=== PATIENT | female | born 1960 | race Caucasian/White ===

== ENCOUNTER 2016-05-21 04:30 | Emergency (ER) | payer OTHER ==
[~2016-05-21] VITALS: Ht 170.2 cm; Wt 75.0 kg
[~2016-05-21 04:30] MED LIST: DESL5TAB5 PO; HYDR-3498 PO; IMIT25 PO; LORA-444 PO; TOPI100T42 PO; ZOLP10TA PO
[2016-05-21 04:32] VITALS: Ht 170.2 cm; Wt 75.0 kg
--- NOTE | 2016-05-21 04:52 | ERA ---
ER Documentation Chief Complaint Date/Time DATE: 05/21/16 TIME: 04:50 Chief Complaint RLQ abd pain radaiting to back since 1 hour ago HPI The patient is a 55-year-old female, presenting to the ER because of sudden onset of right sided abdominal pain about 3 AM. She has similar symptoms previously from kidney stone. The pain is 10/10, no aggravating or relieving factor. She does not have fever, chills, neck pain, chest pain, vomiting, diarrhea, constipation, dysuria. She does not smoke nor drink Past medical history: Migraine, anxiety, history of kidney stone Past surgical history: 4 , hysterectomy ROS All systems reviewed and are negative except as per history of present illness. Medications Home Meds Active Scripts Hydrocodone/Acetaminophen ([place] 5-325 Tablet) 1 Each Tablet, 1 TAB PO Q6H Y for PAIN, #7 TAB Prov:SANDRA REYES MD 05/21/16 Hydrocodone Bit-Acetaminophen* ([place]*) 5-325 Mg Tab, 1 TAB PO Q6 Y for PAIN, # 7 TAB Prov:SANDRA REYES MD 02/06/15 Reported Medications Zolpidem Tartrate* (Ambien*) 10 Mg Tablet, 10 MG PO HS Y for INSOMNIA, TAB 02/06/15 Topiramate* (Topamax*) 100 Mg Tablet, 100 MG PO DAILY, TAB 02/06/15 Sumatriptan Succinate* (Imitrex*) 25 Mg Tablet, 25 MG PO BID Y for MILD PAIN LEVEL 1-3, TAB May repeat after 2 hours if needed; MAX 200 mg/24 hours 11/03/13 Lorazepam* (Ativan*) 2 Mg Tablet, 2 MG PO HS 02/08/13 Desloratadine (Clarinex) 5 Mg/Tab Tab.rapdis, 5 MG PO DAILY 02/08/13 Allergies Allergies: Coded Allergies: latex (Verified Allergy, Unknown, 02/06/15) levofloxacin (Verified Allergy, Unknown, 02/06/15) PMhx/Soc History of Surgery: Yes (2 CARPAL TUNNEL;RHINOPLASTY, 3 c-sections, hysterectomy, oofrectomy) Anesthesia Reaction: No Hx Neurological Disorder: Yes (MIGRAINES) Hx Respiratory Disorders: No Hx Cardiac Disorders: No Hx Psychiatric Problems: Yes (ANXIETY) Hx Miscellaneous Medical Probl: Yes (pain contract for work related injury) Hx Alcohol Use: No Hx Substance Use: No Hx Tobacco Use: No Physical Exam Vitals Vital Signs Date Time Temp Pulse Resp B/P Pulse Ox O2 Delivery O2 Flow Rate FiO2 05/21/16 05:43 74 18 116/61 99 Room Air 05/21/16 04:32 98.3 76 20 172/81 98 Physical Exam Const: No acute distress. Head: Atraumatic. Eyes: Normal Conjunctiva. ENT: Normal External Ears, Nose and Mouth. Neck: Full range of motion. No meningismus. Resp: Clear to auscultation bilaterally. Cardio: Regular rate and rhythm, no murmurs. Abd: Soft, non distended, normal bowel sounds, mild right flank tenderness and right lower quadrant tenderness. No rigidity, rebound, CVA tenderness Skin: No petechiae or rashes. Back: No midline or flank tenderness. Ext: No cyanosis, or edema. Neur: Awake and alert. No focal deficit Psych: Normal Mood and Affect. Result Diagram: 05/21/16 0505 05/21/16 0505 Results 24 hrs Laboratory Tests Test 05/21/16 05:05 05/21/16 05:50 Alanine Aminotransferase (ALT/SGPT) 29IU/L Albumin 4.1g/dl Albumin/Globulin Ratio 1.36 Alkaline Phosphatase 106IU/L Anion Gap 18 Aspartate Amino Transf (AST/SGOT) 26IU/L Basophils # 0.010^3/ul Basophils % 0.7% Blood Morphology Comment Blood Urea Nitrogen 21mg/dl Calcium Level 9.3mg/dl Carbon Dioxide Level 23mmol/L Chloride Level 111mmol/L Creatinine 1.09mg/dl Direct Bilirubin 0.00mg/dl Eosinophils # 0.210^3/ul Eosinophils % 3.0% Globulin 3.00g/dl Glucose Level 111mg/dl Hematocrit 42.4% Hemoglobin 14.7g/dl Indirect Bilirubin 0.2mg/dl Lipase 68U/L Lymphocytes # 1.910^3/ul Lymphocytes % 37.4% Mean Corpuscular Hemoglobin 31.3pg Mean Corpuscular Hemoglobin Concent 34.8g/dl Mean Corpuscular Volume 90.1fl Mean Platelet Volume 10.6fl Monocytes # 0.410^3/ul Monocytes % 7.3% Neutrophils # 2.610^3/ul Neutrophils % 51.6% Nucleated Red Blood Cells # 0.010^3/ul Nucleated Red Blood Cells % 0.0/100WBC Platelet Count 07187^3/UL Potassium Level 4.2mmol/L Red Blood Count 4.7110^6/ul Red Cell Distribution Width 12.8% Sodium Level 148mmol/L Total Bilirubin 0.2mg/dl Total Protein 7.1g/dl White Blood Count 5.110^3/ul Bedside Urine Blood 3+ Bedside Urine Glucose (UA) Negative Bedside Urine Ketones (LAB) Negative Bedside Urine Leukocyte Esterase (L Trace Bedside Urine Nitrite (LAB) Negative Bedside Urine Protein (LAB) Negative Bedside Urine pH (LAB) 5.5 Current Medications Medications (Trade) Dose Ordered Sig/Alla Route PRN Reason Start Time Stop Time Status Last Admin Dose Admin Morphine Sulfate (morphine) 4 mg ONCE STAT IV 05/21/16 04:58 05/21/16 05:00 DC 05/21/16 05:10 Ondansetron HCl (Zofran Inj) 4 mg ONCE STAT IV 05/21/16 04:58 05/21/16 05:00 DC 05/21/16 05:10 Ketorolac Tromethamine (Toradol) 30 mg ONCE ONCE IV 05/21/16 06:07 05/21/16 06:08 DC 05/21/16 06:19 Procedures/[place] [id number] Radiology Main Line: [phone] DIAGNOSTIC IMAGING REPORT Patient: MIRA PRAKASH : 1960 Age: 55 Sex: F [id number] DOS: 05/21/16 0458 Ordering MD: SANDRA REYES MD Location: E/R Room/Bed: PROCEDURE: CT ABDOMEN/PELVIS WITHOUT CONTRAST CLINICAL INDICATION: 55-year-old female with abdominal pain. TECHNIQUE: The study was performed utilizing a [employer] VCT 64-slice CT scanner. Direct axial sections were obtained through the abdomen and pelvis without the use of intravenous contrast material. Sagittal and coronal reformations were obtained. The images were reviewed on a PACS workstation. CTD/vol = 12.9 mGy; Total Exam DLP = 730 mGy-cm. COMPARISON: CT abdomen/pelvis February 06, 2015. FINDINGS: There is mild scarring within the lingula. There is no evidence for significant pleural effusion. The liver has a normal size and contour without focal areas of abnormal density. No intrahepatic nor extrahepatic biliary ductal dilatation is seen. The gallbladder demonstrates no wall thickening nor pericholecystic fluid. No biliary stones are evident. The pancreas is without areas of abnormal attenuation. This spleen is identified and has a normal size without abnormal density. The adrenal glands are unremarkable. There is mild right-sided hydroureteronephrosis with an obstructing calculus in the distal right ureter measuring approximately 2 x 2 mm. There are multiple nonobstructing calculi scattered throughout the left kidney with the largest in the left lower pole measuring approximately 5 x 6 x 5 mm. The urinary bladder contains a small volume of urine. There is moderate retained stool identified within the proximal colon without obstruction. Multiple diverticula seen within the descending and sigmoid colon without surrounding inflammatory changes. The appendix is visualized and is without abnormal thickening or surrounding inflammatory reaction. The uterus is not visualized consistent with prior hysterectomy. There is no significant free fluid. The aortoiliac vessels are without aneurysmal dilatation. The osseous structures are intact. IMPRESSION: 1. Mild right-sided hydroureteronephrosis with obstructing distal right ureteral 2 x 2 mm calculus. 2. Multiple nonobstructing left renal calculi. 3. Retained stool within the ascending and transverse colon without obstruction. 4. Descending and sigmoid colon diverticulosis. 5. No CT evidence for appendicitis. 6. Status post hysterectomy. .Reynold Mcarthur MD, MD Date Time Electronically viewed and signed by .Reynold Mcarthur MD, MD on 05/21/2016 05:58 .M/ CC: SANDRA REYES MD MEDICAL MAKING DECISION: The patient is a 55-year-old female, presenting with acute right ureterolithiasis. She was treated with morphine 4 mg IV and Toradol 30 mg IV for pain and Zofran 4 mg IV for nausea with good response. The differential diagnoses considered include but are not limited to cholelithiasis, cholecystitis, cystitis, pancreatitis, hepatitis, gastritis, peptic ulcer disease, gastric ulcer, appendicitis, diverticulitis, cholangitis, choledocholithiasis, partial small bowel obstruction. Departure Diagnosis: Primary Impression: Ureterolithiasis Condition: Good Comments She was discharged with [place] I discussed the findings with the patient. I advised the patient to follow-up with the primary physician in about 1-2 days, sooner if needed and return if any concern. The patient's blood pressure was elevated (>120/80) but appears stable without evidence of hypertension emergency or urgency. The patient was counseled about the risks of hypertension and urged to pursue outpatient monitoring and therapy within a week with their primary care physician. SANDRA REYES MD May 21, 2016 04:51
[2016-05-21] MEDS ORDERED: ONDANSETRON 4 MG INJ IV STA (04:58)
[2016-05-21] MEDS ORDERED: morphine 4 MG/ML VIAL IV STA (04:58)
[2016-05-21 05:31] LABS: BASOPHILS % 0.7 % (0.0-2.0); EOSINOPHILS # 0.2 10^3/ul (0.0-0.5); HEMATOCRIT 42.4 % (37.0-47.0); HEMOGLOBIN 14.7 g/dl (12.0-16.0); LYMPHOCYTES # 1.9 10^3/ul (0.8-2.9); LYMPHOCYTES % 37.4 % (15.0-51.0); MEAN CORPUSCULAR HEMOGLOBIN 31.3 pg (29.0-33.0); MEAN CORPUSCULAR HGB CONC 34.8 g/dl (32.0-37.0); MEAN CORPUSCULAR VOLUME 90.1 fl (82.0-101.0); MEAN PLATELET VOLUME 10.6 fl (7.4-10.4); MONOCYTE # 0.4 10^3/ul (0.3-0.9); MONOCYTES % 7.3 % (0.0-11.0); NEUTROPHIL # 2.6 10^3/ul (1.6-7.5); NEUTROPHILS % 51.6 % (39.0-77.0); PLATELET COUNT 174 10^3/UL (140-440); RED BLOOD COUNT 4.71 10^6/ul (4.20-5.40); RED CELL DISTRIBUTION WIDTH 12.8 % (11.5-14.5); UNCORRECTED WBC 5.1 10^3/ul (4.8-10.8); WHITE BLOOD COUNT 5.1 10^3/ul (4.8-10.8)
[2016-05-21] MEDS ORDERED: HYDR-906 PO (05:38)
[2016-05-21 05:43] VITALS: BP 116/61; PULSE 74; RESP 18
[2016-05-21 05:45] LABS: CONDITION 1
[2016-05-21 05:51] LABS: URINE BLOOD (Dip) POC 3+ (NEGATIVE)
--- NOTE | 2016-05-21 05:58 | RADRPT ---
PROCEDURE: CT ABDOMEN/PELVIS WITHOUT CONTRAST CLINICAL INDICATION: 55-year-old female with abdominal pain. TECHNIQUE: The study was performed utilizing a [employer] VCT 64-slice CT scanner. Direct axia l sections were obtained through the abdomen and pelvis without the use of intravenous contrast mate rial. Sagittal and coronal reformations were obtained. The images were reviewed on a PACS workstatio n. CTD/vol = 12.9 mGy; Total Exam DLP = 730 mGy-cm. COMPARISON: CT abdomen/pelvis February 06, 2015. FINDINGS: There is mild scarring within the lingula. There is no evidence for significant pleural effusion. The liver has a normal size and contour without focal areas of abnormal density. No intrahepatic nor extrahepatic biliary ductal dilatation is seen. The gallbladder demonstrates no wall thickening nor pericholecystic fluid. No biliary stones are evident. The pancreas is without areas of abnormal att enuation. This spleen is identified and has a normal size without abnormal density. The adrenal gla nds are unremarkable. There is mild right-sided hydroureteronephrosis with an obstructing calculus i n the distal right ureter measuring approximately 2 x 2 mm. There are multiple nonobstructing calcu li scattered throughout the left kidney with the largest in the left lower pole measuring approximat fidelina 5 x 6 x 5 mm. The urinary bladder contains a small volume of urine. There is moderate retained s tool identified within the proximal colon without obstruction. Multiple diverticula seen within the descending and sigmoid colon without surrounding inflammatory changes. The appendix is visualize d and is without abnormal thickening or surrounding inflammatory reaction. The uterus is not visuali zed consistent with prior hysterectomy. There is no significant free fluid. The aortoiliac vessels are without aneurysmal dilatation. The osseous structures are intact. IMPRESSION: 1. Mild right-sided hydroureteronephrosis with obstructing distal right ureteral 2 x 2 mm calculus. 2. Multiple nonobstructing left renal calculi. 3. Retained stool within the ascending and transverse colon without obstruction. 4. Descending and sigmoid colon diverticulosis. 5. No CT evidence for appendicitis. 6. Status post hysterectomy. .Reynold Mcarthur MD, MD Date Time Electronically viewed and signed by .Reynold Mcarthur MD, MD on 05/21/2016 05:58 .Rajat
[2016-05-21 05:59] LABS: ALBUMIN 4.1 g/dl (3.3-4.9)
[2016-05-21 06:00] LABS: POTASSIUM 4.2 mmol/L (3.5-5.1)
[2016-05-21 06:02] LABS: ALBUMIN/GLOBULIN RATIO 1.36; BILIRUBIN,INDIRECT 0.2 mg/dl (0-1.1); BILIRUBIN,TOTAL 0.2 mg/dl (0.2-1.3); CREATININE 1.09 mg/dl (0.44-1.00); TOTAL PROTEIN 7.1 g/dl (6.1-8.1)
[2016-05-21 06:03] LABS: CALCIUM 9.3 mg/dl (8.4-10.2)
[2016-05-21] MEDS ORDERED: KETOROLAC 30 MG INJ IV ONE (06:07)
== END 2016-05-21 06:26 | disposition home or self-care (01) ==
LOC: E/R 04:30
DX: R10.31 Right lower quadrant pain (principal)
CPT/HCPCS: 36415; 74176; 80053; 81003; 83690; 85025; 96374; 96375; J1885; J2270; J2405; Z7502; Z7610

== ENCOUNTER 2016-05-26 20:01 | Emergency (ER) | payer OTHER ==
[~2016-05-26] VITALS: Ht 167.6 cm; Wt 74.5 kg
[~2016-05-26 20:01] MED LIST changes: +HYDR-906 PO
[2016-05-26 20:12] VITALS: Ht 167.6 cm; Wt 74.5 kg
[2016-05-26] MEDS ORDERED: NAPR-688 PO (23:20)
--- NOTE | 2016-05-26 23:54 | ERD ---
ER Documentation Chief Complaint Date/Time DATE: 05/26/16 TIME: 23:51 Chief Complaint RT KNEE PAIN X 2 DAYS; LAST NORCO TAKEN YESTERDAY. HPI This is a 55-year-old female presenting to the emergency department complaining of right knee pain since Wednesday. Patient states that she bent down and heard a pop that started the pain. She locates the pain in the anterior region of the right knee. She rates the pain 7 out of 10. Patient states that she has difficulty walking. ROS All systems reviewed and are negative except as per history of present illness. Medications Home Meds Active Scripts Naproxen* (Naproxen*) 500 Mg Tablet, 500 MG PO BID Y for PAIN, #30 TAB Prov:KHADAR MCGILL PA-C 05/26/16 Hydrocodone/Acetaminophen ([place] 5-325 Tablet) 1 Each Tablet, 1 TAB PO Q6H Y for PAIN, #7 TAB Prov:SANDRA REYES MD 05/21/16 Hydrocodone Bit-Acetaminophen* ([place]*) 5-325 Mg Tab, 1 TAB PO Q6 Y for PAIN, # 7 TAB Prov:SANDRA REYES MD 02/06/15 Reported Medications Zolpidem Tartrate* (Ambien*) 10 Mg Tablet, 10 MG PO HS Y for INSOMNIA, TAB 02/06/15 Topiramate* (Topamax*) 100 Mg Tablet, 100 MG PO DAILY, TAB 02/06/15 Sumatriptan Succinate* (Imitrex*) 25 Mg Tablet, 25 MG PO BID Y for MILD PAIN LEVEL 1-3, TAB May repeat after 2 hours if needed; MAX 200 mg/24 hours 11/03/13 Lorazepam* (Ativan*) 2 Mg Tablet, 2 MG PO HS 02/08/13 Desloratadine (Clarinex) 5 Mg/Tab Tab.rapdis, 5 MG PO DAILY 02/08/13 Allergies Allergies: Coded Allergies: latex (Verified Allergy, Unknown, 02/06/15) levofloxacin (Verified Allergy, Unknown, 02/06/15) PMhx/Soc History of Surgery: Yes (2 CARPAL TUNNEL;RHINOPLASTY, 3 c-sections, hysterectomy, oofrectomy) Anesthesia Reaction: No Hx Neurological Disorder: Yes (MIGRAINES) Hx Respiratory Disorders: No Hx Cardiac Disorders: No Hx Psychiatric Problems: Yes (ANXIETY) Hx Miscellaneous Medical Probl: Yes (pain contract for work related injury, kidney stone) Hx Alcohol Use: No Hx Substance Use: No Hx Tobacco Use: No Smoking Status: Never smoker Physical Exam Vitals Vital Signs Date Time Temp Pulse Resp B/P Pulse Ox O2 Delivery O2 Flow Rate FiO2 05/26/16 20:12 98.4 86 18 157/80 99 Physical Exam General: WD/WN, in no apparent distress, non-toxic appearing HENT: NC/AT Eyes: Conjunctiva normal Neck: Supple Pulm: Clear to auscultation, normal labored breathing; no wheezing/rales/ rhonchi heard CV: Good capillary refill GI: Non-distended, no guarding Back: No masses Ext: Tender palpation over the right anterior knee, full range of motion, patient was ambulating well around the ER however in the exam she has had difficulty walking. Neuro: Moves on all fours Skin: intact Psych: Normal mood Procedures/MDM This is a 55-year-old female presenting to the emergency department complaining of right knee pain since Wednesday. I will low suspicion for fracture dislocation. I discussed with patient that she is suitable to follow-up with her primary care physician to get a referral to see an orthopedist to consider an MRI. Patient examination room had tenderness in the right anterior knee and had difficulty walking in exam room however she was walking really well throughout the ER. An x-ray of the right knee was done and did not show any evidence of fracture dislocation. Patient will be given a prescription for naproxen. With precautions to return to the ER for any worsening symptoms.. A knee immobilizer was applied, she is neurovascular intact she understands and agrees this plan Departure Diagnosis: Primary Impression: Knee pain Laterality: right Chronicity: acute Qualified Code: M25.561 - Acute pain of right knee Condition: Stable Patient Instructions: Knee Pain, Uncertain Cause, Knee Sprain Referrals: CRISTOPHER LIRA MD (PCP) Additional Instructions: FOLLOW UP WITH YOUR PRIMARY CARE PHYSICIAN TOMORROW.Return to this facility if you are not improving as expected. Take all medicines as directed. Return to this facility if you are not improving as expected. KHADAR MCGILL PA-C May 26, 2016 23:54
--- NOTE | 2016-05-26 23:55 | RADRPT ---
PROCEDURE: knee x-ray CLINICAL INDICATION: right knee pain TECHNIQUE: AP, lateral and oblique views of the right knee were obtained. COMPARISON: None FINDINGS: There is normal mineralization. No acute fracture or dislocation is seen. Minimal lateral compartment joint spurring. There is no joint effusion. There is no significant soft tissue swelling. IMPRESSION: No fracture or dislocation. No soft tissue abnormality. RPTAT:AAJJ Silvestre Hope Physician Date Time Electronically viewed and signed by Physician Hugh on 05/26/2016 23:55 SARAH/
[2016-05-27 00:26] VITALS: BP 142/74; PULSE 68; RESP 18; TEMP 98.1
== END 2016-05-27 00:31 | disposition home or self-care (01) ==
LOC: FTE 20:01
DX: M25.561 Pain in right knee (principal); Z91.040 Latex allergy status
CPT/HCPCS: 29505; 73562; Z7502

== ENCOUNTER 2017-07-30 16:01 | Emergency (ER) | END 2017-07-30 17:45 | disposition home or self-care (01) ==

== ENCOUNTER 2017-08-22 05:59 | Inpatient (IN) | END 2017-08-23 22:15 | disposition home or self-care (01) | DRG 670 ==

== ENCOUNTER 2017-09-04 10:56 | Emergency (ER) | END 2017-09-04 13:27 | disposition home or self-care (01) ==

== ENCOUNTER 2018-02-02 07:57 | Day surgery (SDC) | END 2018-02-02 11:23 | disposition home or self-care (01) ==

== ENCOUNTER 2018-09-02 22:52 | Emergency (ER) | payer OTHER ==
[~2018-09-02] VITALS: Ht 162.6 cm; Wt 80.0 kg
[~2018-09-02 22:52] MED LIST changes: +ALBU18HF INHALATION; +ALBU2.5V3 NEB; +AZIT250T13 PO; -DESL5TAB5 PO; +FLUT16SP17 NASAL; -HYDR-3498 PO; +HYDR-3980 PO; -HYDR-906 PO; +IBUP-1542 PO; -IMIT25 PO; -LORA-444 PO; +MONT10TA24 PO; +NAPR-683 PO; +SUMA6CAR2 SQ; +TOPI100T11 PO; -TOPI100T42 PO; -ZOLP10TA PO; +ZOLP5TAB7 PO
[2018-09-02 22:57] VITALS: Ht 162.6 cm; Wt 80.0 kg
[2018-09-02] MEDS ORDERED: METHYLPREDNISOLONE 125 MG INJ IV STA (22:57)
[2018-09-02] MEDS ORDERED: IPRATROPIUM (NEB) 0.5 MG/2.5 ML AMP INH STA (22:57)
[2018-09-02] MEDS ORDERED: ALBUTEROL 0.5% (NEB) 2.5 MG/0.5 ML AMP INH STA (22:57)
[2018-09-02] MEDS ORDERED: ACETAMINOPHEN 325 MG TAB PO ONE (23:00)
--- NOTE | 2018-09-03 00:02 | ERD ---
ER Documentation Chief Complaint Chief Complaint Audible wheezing, SOB, abd retractions HPI This is a 57-year-old female with a past medical history of hyperlipidemia, asthma, migraines who is presenting with concerns of an exacerbation of her asthma. The patient reports issues over the last 2 to 3 months. She reports a chronic cough with wheezing that is occasionally exacerbated. The patient does not endorse any alleviating or exacerbating factors. The patient reports that this evening, the patient was getting ready for bed when she developed a coughing fit with shortness of breath and wheezing and she was unable to get it under control at home. She attempted to use her albuterol, but it was ineffective. The patient endorses chest tightness but no chest pain. The patient denies fever or chills. The patient has had no vision changes. The patient does not endorse neck or back pain. The patient denies lightheadedness or dizziness. The patient denies nausea or vomiting. The patient denies abdominal pain. The patient denies changes to bowel movements or urination. The patient has had no focal deficits. The patient has had no weakness or numbness or tingling to the face or extremities. ROS All systems reviewed and are negative except as per history of present illness. Medications Home Meds Active Scripts Ibuprofen* (Motrin*) 600 Mg Tab, 600 MG PO Q6H PRN for PAIN AND OR ELEVATED TEMP, #30 TAB Prov:SANDRA REYES MD 06/15/18 Reported Medications Topiramate* (Topiramate*) 100 Mg Tablet, 100 MG PO BID, TAB 06/15/18 Montelukast Sodium* (Montelukast Sodium*) 10 Mg Tablet, 10 MG PO QHS, #30 TAB 06/15/18 Albuterol Sulfate* (Albuterol Sulfate* Neb) 0.083%-3 Ml Neb, 2.5 MG NEB Q6H PRN for WHEEZING AND SOB, #30 VIAL 06/15/18 Albuterol Sulfate* (Ventolin HFA*) 18 Gm Hfa.aer.ad, 2 PUFF INHALATION Q6H, #1 INHALER 06/15/18 Hydrocodone/Acetaminophen ([place] 10-325 Tablet) 1 Each Tablet, 1 EACH PO Q6H, TAB 06/15/18 Zolpidem Tartrate* (Zolpidem Tartrate*) 5 Mg Tablet, 5 MG PO QHS PRN for INSOMNIA, #30 TAB 06/15/18 Sumatriptan Succinate* (Sumatriptan Succinate* Inj) 6 Mg/0.5 Ml Cartridge, 6 MG SQ Q12H PRN for MIGRAINE, EA MAX 6 mg/dose, repeat in 1 hour if needed. MAX 12 mg/24 hours NEEDED 06/15/18 Fluticasone Propionate* (Fluticasone Propionate* Nasal) 50 Mcg/[place] - 16 Gm [place].susp, 1 SPRAY NASAL BID, #1 BOTTLE TO EACH NOSTRIL 06/15/18 Discontinued Reported Medications Naproxen* (Naproxen*) 250 Mg Tablet, 250 MG PO BID, TAB 06/15/18 Azithromycin* (Azithromycin*) 250 Mg Tablet, 250 MG PO DAILY, #5 TAB TAKE 2TAB-1ST DAY THEN TAKE 1TAB-DAILY FOR 5 DAYS,START DATE 06/14/18. 06/15/18 Allergies Allergies: Coded Allergies: latex (Unverified Allergy, Unknown, 09/03/18) levofloxacin (Unverified Allergy, Unknown, 09/03/18) PMhx/Soc History of Surgery: Yes (real stones, c section x4, hysterectomy, CTR x2) Anesthesia Reaction: No Hx Neurological Disorder: No Hx Respiratory Disorders: Yes (asthma) Hx Cardiac Disorders: Yes (HLD) Hx Psychiatric Problems: No Hx Miscellaneous Medical Probl: Yes (MIGRAIN) Hx Alcohol Use: No Hx Substance Use: No Hx Tobacco Use: No Smoking Status: Unknown if ever smoked FmHx Family History: No diabetes Physical Exam Vitals Vital Signs Date Temp Pulse Resp B/P (MAP) Pulse Ox O2 O2 Flow FiO2 Time Delivery Rate 09/02/18 84 20 99 21 23:33 09/02/18 88 16 152/99 99 23:01 (116) 09/02/18 99.8 121 40 207/99 99 22:57 (135) Physical Exam Const: No acute distress Head: Atraumatic Eyes: Normal Conjunctiva ENT: Normal External Ears, Nose and Mouth. Neck: Full range of motion. No meningismus. Resp: Mild increased work of breathing. Bilateral inspiratory and expiratory wheezes. No rales or rhonchi. Cardio: Regular rhythm, tachycardia. No murmurs Abd: Soft, non tender, non distended. Normal bowel sounds Skin: No petechiae or rashes Back: No midline or flank tenderness Ext: No cyanosis, or edema Neur: Awake and alert Psych: Anxious Result Diagram: 09/02/180 09/02/182309 Results 24 hrs Laboratory Tests Test 09/02/18 23:10 09/02/18 23:29 White Blood Count 6.1 10^3/ul Red Blood Count 4.84 10^6/ul Hemoglobin 14.5 g/dl Hematocrit 42.9 % Mean Corpuscular Volume 88.6 fl Mean Corpuscular Hemoglobin 30.0 pg Mean Corpuscular Hemoglobin Concent 33.8 g/dl Red Cell Distribution Width 12.4 % Platelet Count 211 10^3/UL Mean Platelet Volume 11.9 fl Immature Granulocytes % 0.200 % Neutrophils % 40.0 % Lymphocytes % 44.8 % Monocytes % 9.6 % Eosinophils % 4.9 % Basophils % 0.5 % Nucleated Red Blood Cells % 0.0 /100WBC Immature Granulocytes # 0.010 10^3/ul Neutrophils # 2.4 10^3/ul Lymphocytes # 2.7 10^3/ul Monocytes # 0.6 10^3/ul Eosinophils # 0.3 10^3/ul Basophils # 0.0 10^3/ul Nucleated Red Blood Cells # 0.0 10^3/ul Prothrombin Time 11.5 Sec Prothrombin Time Ratio 0.9 INR International Normalized Ratio 0.83 Activated Partial Thromboplast Time 25.6 Sec Sodium Level 144 mmol/L Potassium Level 3.7 mmol/L Chloride Level 113 mmol/L Carbon Dioxide Level 21 mmol/L Anion Gap 10 Blood Urea Nitrogen 17 mg/dl Creatinine 0.79 mg/dl Est Glomerular Filtrat Rate mL/min > 60 mL/min Glucose Level 123 mg/dl Calcium Level 9.9 mg/dl Troponin I < 0.012 ng/ml POC Venous Lactate 1.8 mmol/L Current Medications Medications Dose Sig/Alla Start Time Status Last (Trade) Ordered Route PRN Stop Time Admin Dose Reason Admin Ipratropium 1.5 mg ONCE STAT 09/02/18 DC 09/02/18 [place] INH 22:57 23:33 (Atrovent 09/02/18 23:07 0.02% (Neb)) Albuterol 15 mg ONCE STAT 09/02/18 DC 09/02/18 (Proventil INH 22:57 23:33 0.5% (Neb)) 09/02/18 23:07 125 mg ONCE STAT 09/02/18 DC 09/02/18 Methylprednis IV 22:57 23:34 olone Sodium 09/02/18 23:07 Succinate (Solu-Medrol) 650 mg ONCE ONCE 09/02/18 DC 09/02/18 Acetaminophen PO 23:00 23:34 (Tylenol 09/02/18 23:07 Tab) Procedures/MDM MDM The patient's presentation warrants further investigation. Previous medical records, if available, were reviewed. LABS The patient's laboratory testing was obtained and reviewed. No emergent treatmen t was required unless described below. CBC: No E/o systemic infection or severe anemia or thrombocytopenia Chemistry: No E/o severe acidosis or alkalosis or renal failure or diabetic ketoacidosis PT/INR: No E/o significant coagulopathy Troponin: No E/o acute ischemia Lactic Acid: No E/o severe sepsis EKG EKG read by me: Rate/Rhythm: Regular rate and rhythm at a rate of 90 bpm Intervals: Normal [place]: Normal Impression: No evidence of acute ischemia or arrhythmia IMAGING Imaging and Radiology interpretation reviewed. CXR FINDINGS: Mild low lung volumes. Mild bibasilar atelectasis. Hemidiaphragms remain sharply defined. No evidence of focal consolidation, pneumothorax, or pleural effusion. Cardiomediastinal silhouette is within normal limits. Visualized osseous thorax is unremarkable. Overlying soft tissues are equally unremarkable. IMPRESSION: No evidence of acute cardiopulmonary process, allowing for mild low lung volumes. Electronically viewed and signed by Physician Dane on 09/02/2018 23:58 TREATMENT/DISPOSITION The patient presents for an asthma exacerbation. I do not see evidence of an infectious etiology. The patient was treated with nebulized albuterol and ipratropium in addition to Solu-Medrol with improvement of her symptoms. After treatment, the patient's heart rate and respiratory rate resolved. The patient's chest xray does not reveal pneumonia or pneumothorax or pleural effusions or pulmonary edema. The patient does not have a widened mediastinum and does not have signs or symptoms concerning for thoracic aortic aneurysm or dissection. The patient does not have pneumomediastinum or signs concerning for esophageal tear or rupture. The patient has no clinical or radiographic signs of pericardial effusion or tamponade. The patient does not have pneumoperitoneum and I have decreased suspicion of viscus perforation as possible referred pain. The patient does not have a history of heart failure and I have low suspicion for this. The patient is not hypoxic. The patient have pleuritic pain. The patient is not on hormonal therapy. The patient has no history of clotting or bleeding disorders. The patient has no calf tenderness. The patient has had no hemoptysis. She has a more likely diagnosis and an asthma exacerbation. I have decreased suspicion for PE. The patient's troponin and EKG are reassuring. I have low suspicion for acute coronary syndrome. DISCHARGE Upon reevaluation of the patient, symptoms have improved. No emergent diagnoses were identified. At this time, I feel that the patient stable for discharge. The patient was instructed to follow-up with a primary care physician in 1-3 days. The patient will be given strict precautions with which to return to the emergency department. Prescriptions: Prednisone, Tessalon Perles The patient's blood pressure was elevated at greater than 120/80 while in the emergency department. The patient was otherwise stable with no evidence of hypertensive urgency or emergency. The patient does not require admission for blood pressure control. I have discussed with the patient the risks of hypertension. I have instructed the patient to return to the ER for any new or worsening symptoms including chest pain, shortness of breath, headache, blurred vision, confusion, nausea, vomiting or LOC. I have advised the patient to follow up with the primary care physician for outpatient monitoring and treatment for hypertension in 1-3 days. Disclaimer: Inadvertent spelling and grammatical errors are likely due to EHR/dictation software use and do not reflect on the overall quality of patient care. Note that the electronic time recorded on this note does not necessarily reflect the actual time of the patient encounter. Departure Diagnosis: Primary Impression: Asthma exacerbation Asthma severity: moderate Asthma persistence: unspecified Qualified [place]: J45.901 - Unspecified asthma with (acute) exacerbation Additional Impressions: Shortness of breath Chronic cough Condition: Stable Patient Instructions: Asthma, Cough, Chronic, Uncertain Cause, (Adult) Additional Instructions: Thank you for for coming to [facility] for your care today. Please ask your nurse or provider if you have questions about your care today and do not leave until all your questions have been answered. Please use any medications given as directed and follow-up with your doctor (or the doctor you were referred to) in the next 1-3 days. If you do not have a primary care doctor you may follow up at the [facility] or [facility] (listed below). You may also use motrin and tylenol as needed for fever and/or pain unless instructed otherwise by your provider or nurse. Indications for more urgent follow-up have been discussed, but you may return to the Emergency Department at ANY time for any worrisome or worsening symptoms. If you have abdominal pain, please know that no test or exam you received is perfect and you should follow up within 8 hours for continued pain. If you had any imaging studies today, such as an X-Ray or CT Scan, these studies will be reviewed later by a radiologist. You will be called if there are important findings that were not identified today, so make sure the contact information you provided at registration is correct. If you received any narcotic pain control medicine today, such as Vicodin, Mor phine or Dilaudid, your coordination and judgment may be affected for a number of hours. Please do not drive or operate heavy machinery, and you may want someone to assist you at home. If you were given a prescription for narcotic medication, be aware that it is very addictive- use sparingly and only if necessary. PLEASE SEEK FURTHER EVALUATION AND MANAGEMENT AT YOUR DOCTORS OFFICE WITHIN THE NEXT 1-3 DAYS. IT IS YOUR RESPONSIBILITY TO MAKE AN APPOINTMENT FOR FOLOW-UP CARE. IF YOU HAVE A PRIMARY DOCTOR, PLEASE CALL THEIR OFFICE TO SCHEDULE AN APPOINTMENT FOR FOLLOW UP. IF YOU DO NOT HAVE A PRIMARY DOCTOR YOU CAN CALL OUR PHYSICIAN REFERRAL HOTLINE AT IF YOU CAN NOT AFFORD TO SEE A PHYSICIAN YOU CAN CHOSE FROM THE FOLLOWING [facility] CLINICS: [facility] [address] [facility] [address] [facility] [address] [facility] [address] [facility] [address] [facility] [facility]. [address] MARIANO RIOSSHIRA MD Sep 03, 2018 00:02
[2018-09-03] MEDS ORDERED: BENZ-6 PO (02:30)
[2018-09-03] MEDS ORDERED: PRED20TA PO (02:30)
[2018-09-03 02:51] VITALS: BP 135/70; PULSE 85; RESP 21
== END 2018-09-03 02:58 | disposition home or self-care (01) ==
LOC: E/R 22:52
DX: J45.901 Unspecified asthma with (acute) exacerbation (principal); Z91.040 Latex allergy status
CPT/HCPCS: 36415; 71045; 80048; 83605; 84484; 85025; 85610; 85730; 93005; 94644; 96374; 99285; J2930

== ENCOUNTER 2018-10-23 21:21 | Inpatient (IN) | payer OTHER ==
[~2018-10-23] VITALS: Ht 167.6 cm; Wt 79.5 kg
[~2018-10-23 21:21] MED LIST changes: -AZIT250T13 PO; +BENZ-6 PO; -NAPR-683 PO; +PRED20TA PO
[2018-10-23] MEDS ORDERED: morphine 4 MG/ML VIAL IV STA (22:16)
[2018-10-23] MEDS ORDERED: SOD CHLORIDE 0.9% 1,000 ML IV STA (22:16)
[2018-10-23] MEDS ORDERED: ONDANSETRON 4 MG INJ IV STA (22:16)
[2018-10-24] MEDS ORDERED: CEFTRIAXONE 1 GM/50 ML (PMX) 50 ML IVPB ONE (01:30)
[2018-10-24] MEDS ORDERED: ACETAMINOPHEN 325 MG TAB PO PRN ×2 (02:00→02:30)
[2018-10-24] MEDS ORDERED: ONDANSETRON 4 MG INJ IV PRN (02:00)
--- NOTE | 2018-10-24 02:22 | ERD ---
ER Documentation Chief Complaint Chief Complaint RIGHT PELVIC PAIN WITH RIGHT FLANK PAIN X 3 DAYS, HX OF KIDNEY STONES HPI 58-year-old female coming in the right lower extremity pain status post mechanical fall. She is complains of pain in her hip and her knee. Has a history of surgically repaired knee. Denies fevers chills nausea vomiting. Denies head trauma. Denies any other current issues ROS All systems reviewed and are negative except as per history of present illness. Medications Home Meds Active Scripts Benzonatate* (Tessalon Perle*) 100 Mg Capsule, 100 MG PO Q8H PRN for COUGH, #10 CAP Prov:SHIRA OLIVARES MD 09/03/18 Prednisone* (Prednisone*) 20 Mg Tab, 40 MG PO DAILY for 4 Days, TAB Prov:SHIRA OLIVARES MD 09/03/18 Ibuprofen* (Motrin*) 600 Mg Tab, 600 MG PO Q6H PRN for PAIN AND OR ELEVATED TEMP, #30 TAB Prov:SANDRA REYES MD 06/15/18 Reported Medications Topiramate* (Topiramate*) 100 Mg Tablet, 100 MG PO BID, TAB 06/15/18 Montelukast Sodium* (Montelukast Sodium*) 10 Mg Tablet, 10 MG PO QHS, #30 TAB 06/15/18 Albuterol Sulfate* (Albuterol Sulfate* Neb) 0.083%-3 Ml Neb, 2.5 MG NEB Q6H PRN for WHEEZING AND SOB, #30 VIAL 06/15/18 Albuterol Sulfate* (Ventolin HFA*) 18 Gm Hfa.aer.ad, 2 PUFF INHALATION Q6H, #1 INHALER 06/15/18 Hydrocodone/Acetaminophen ([place] 10-325 Tablet) 1 Each Tablet, 1 EACH PO Q6H, TAB 06/15/18 Zolpidem Tartrate* (Zolpidem Tartrate*) 5 Mg Tablet, 5 MG PO QHS PRN for INSOMNIA, #30 TAB 06/15/18 Sumatriptan Succinate* (Sumatriptan Succinate* Inj) 6 Mg/0.5 Ml Cartridge, 6 MG SQ Q12H PRN for MIGRAINE, EA MAX 6 mg/dose, repeat in 1 hour if needed. MAX 12 mg/24 hours NEEDED 06/15/18 Fluticasone Propionate* (Fluticasone Propionate* Nasal) 50 Mcg/[place] - 16 Gm [place].susp, 1 SPRAY NASAL BID, #1 BOTTLE TO EACH NOSTRIL 06/15/18 Allergies Allergies: Coded Allergies: latex (Unverified Allergy, Unknown, 09/03/18) levofloxacin (Unverified Allergy, Unknown, 09/03/18) PMhx/Soc History of Surgery: Yes (real stones, c section x4, hysterectomy, CTR x2) Anesthesia Reaction: No Hx Neurological Disorder: No Hx Respiratory Disorders: Yes (asthma) Hx Cardiac Disorders: Yes (HLD) Hx Psychiatric Problems: No Hx Miscellaneous Medical Probl: Yes (MIGRAIN) Hx Alcohol Use: No Hx Substance Use: No Hx Tobacco Use: No Smoking Status: Never smoker Physical Exam Vitals Vital Signs Date Temp Pulse Resp B/P (MAP) Pulse Ox O2 O2 Flow FiO2 Time Delivery Rate 10/23/18 98.4 81 20 165/82 99 Room Air 22:05 (109) 10/23/18 98.4 95 20 190/90 99 21:25 (123) Physical Exam Const: No acute distress Head: Atraumatic Eyes: Normal Conjunctiva ENT: Normal External Ears, Nose and Mouth. Neck: Full range of motion. No meningismus. Resp: Clear to auscultation bilaterally Cardio: Regular rate and rhythm, no murmurs Abd: Soft, non tender, non distended. Normal bowel sounds Skin: No petechiae or rashes Back: No midline or flank tenderness Ext: No cyanosis, or edema Neur: Awake and alert Psych: Normal Mood and Affect Result Diagram: 10/23/18222610/23/187 Results 24 hrs Laboratory Tests Test 10/23/18 22:27 10/23/18 22:37 White Blood Count 5.4 10^3/ul Red Blood Count 4.86 10^6/ul Hemoglobin 14.6 g/dl Hematocrit 43.6 % Mean Corpuscular Volume 89.7 fl Mean Corpuscular Hemoglobin 30.0 pg Mean Corpuscular Hemoglobin Concent 33.5 g/dl Red Cell Distribution Width 12.3 % Platelet Count 180 10^3/UL Mean Platelet Volume 11.7 fl Immature Granulocytes % 0.200 % Neutrophils % 51.0 % Lymphocytes % 35.6 % Monocytes % 9.3 % Eosinophils % 3.0 % Basophils % 0.9 % Nucleated Red Blood Cells % 0.0 /100WBC Immature Granulocytes # 0.010 10^3/ul Neutrophils # 2.8 10^3/ul Lymphocytes # 1.9 10^3/ul Monocytes # 0.5 10^3/ul Eosinophils # 0.2 10^3/ul Basophils # 0.1 10^3/ul Nucleated Red Blood Cells # 0.0 10^3/ul Sodium Level 144 mmol/L Potassium Level 3.9 mmol/L Chloride Level 111 mmol/L Carbon Dioxide Level 26 mmol/L Anion Gap 7 Blood Urea Nitrogen 21 mg/dl Creatinine 0.91 mg/dl Est Glomerular Filtrat Rate mL/min > 60 mL/min Glucose Level 111 mg/dl Calcium Level 9.5 mg/dl Total Bilirubin 0.3 mg/dl Direct Bilirubin 0.00 mg/dl Indirect Bilirubin 0.3 mg/dl Aspartate Amino Transf (AST/SGOT) 23 IU/L Alanine Aminotransferase (ALT/SGPT) 28 IU/L Alkaline Phosphatase 115 IU/L Total Protein 7.2 g/dl Albumin 4.1 g/dl Globulin 3.10 g/dl Albumin/Globulin Ratio 1.32 Lipase 60 U/L Urine Color YELLOW Urine Clarity SLIGHTLY CLOUDY Urine pH 7.0 Urine Specific [place] 1.017 Urine Ketones NEGATIVE mg/dL Urine Nitrite NEGATIVE mg/dL Urine Bilirubin NEGATIVE mg/dL Urine Urobilinogen 1+ mg/dL Urine Leukocyte Esterase 1+ Latricia/ul Urine Microscopic RBC > 182 /HPF Urine Microscopic WBC 17 /HPF Urine Calcium Oxalate Crystals FEW /HPF Urine Hemoglobin 3+ mg/dL Urine Glucose NEGATIVE mg/dL Urine Total Protein NEGATIVE mg/dl Current Medications Medications Dose Sig/Alla Start Time Status Last (Trade) Ordered Route PRN Stop Time Admin Dose Reason Admin Sodium 1,000 ml @ Q1H STAT 10/23/18 DC 10/23/18 Chloride 1,000 mls/hr IV 22:16 22:36 10/23/18 23:15 Morphine 4 mg ONCE STAT 10/23/18 DC 10/23/18 Sulfate IV 22:16 22:36 (morphine) 10/23/18 22:17 Ondansetron 4 mg ONCE STAT 10/23/18 DC 10/23/18 HCl (Zofran IV 22:16 22:36 Inj) 10/23/18 22:17 Ceftriaxone 50 ml @ ONCE ONCE 10/24/18 DC 10/24/18 Sodium 100 mls/hr IVPB 01:30 01:47 10/24/18 01:59 Ondansetron 4 mg BRIDGE ORDER 10/24/18 HCl (Zofran PRN IV 02:00 Inj) NAUSEA/VOMITI 10/25/18 01:59 NG 650 mg ER BRIDGE 10/24/18 Acetaminophen PRN PO 02:00 (Tylenol .MILD PAIN 10/25/18 01:59 Tab) 1-3 OR TEMP Procedures/MDM X-ray Hip 2V Interpreted by me: Bones: [No fracture] Joints: [No dislocation] Foreign body: [None] X-ray Knee 3V Interpreted by me: Bones: Shattered comminuted distal femur above prosthesis Joints: [No dislocation] Foreign body: [None] Medical decision make: Patient will be admitted for orthopedic management given fracture. Pain controlled here in the ER Departure Diagnosis: Primary Impression: Knee fracture Condition: Stable ARAVIND SAUNDERS Oct 24, 2018 02:21
--- NOTE | 2018-10-24 02:27 | HP ---
Date/Time of Note Date/Time of Note DATE: 10/24/18 TIME: 02:20 Assessment/Plan VTE Prophylaxis SCD applied (from Nsg): Yes Pharmacological prophylaxis: NA/contraindicated Pharm contraindication: low risk/ambulating Lines/Catheters IV Catheter Type (from Nrsg): Saline Lock Assessment/Plan Hospital Course This is a 58-year female being admitted to the [facility] floor for: #1 right pyelonephritis with hydrate ureteronephrosis: Secondary to obstructing calculus. Ceftriaxone 1 g every 24 hours. Await urine culture results. IV fluid hydration. #2 nephrolithiasis: Patient has obstructing calculus in the right distal ureter at the ureterovesical junction with associated mild right hydronephrosis and hy droureter. Will provide the patient with antibiotics as per #1. Aggressive IV fluid hydration with normal saline. Flomax daily. Pain control. Straining of the urine. Patient also has bilateral noncritical renal calculi. Will consult . #3 DVT GI prophylaxis: SCDs, no GI prophylaxis indicated Further treatment strategy will be implemented as per the clinical course. Result Diagram: 10/23/18222610/23/182226 Results 24hrs Laboratory Tests Test 10/23/18 22:27 10/23/18 22:37 White Blood Count 5.4 Red Blood Count 4.86 Hemoglobin 14.6 Hematocrit 43.6 Mean Corpuscular Volume 89.7 Mean Corpuscular Hemoglobin 30.0 Mean Corpuscular Hemoglobin Concent 33.5 Red Cell Distribution Width 12.3 Platelet Count 180 Mean Platelet Volume 11.7 H Immature Granulocytes % 0.200 Neutrophils % 51.0 Lymphocytes % 35.6 Monocytes % 9.3 Eosinophils % 3.0 Basophils % 0.9 Nucleated Red Blood Cells % 0.0 Immature Granulocytes # 0.010 Neutrophils # 2.8 Lymphocytes # 1.9 Monocytes # 0.5 Eosinophils # 0.2 Basophils # 0.1 Nucleated Red Blood Cells # 0.0 Sodium Level 144 Potassium Level 3.9 Chloride Level 111 H Carbon Dioxide Level 26 Anion Gap 7 Blood Urea Nitrogen 21 H Creatinine 0.91 Est Glomerular Filtrat Rate mL/min > 60 Glucose Level 111 Calcium Level 9.5 Total Bilirubin 0.3 Direct Bilirubin 0.00 Indirect Bilirubin 0.3 Aspartate Amino Transf (AST/SGOT) 23 Alanine Aminotransferase (ALT/SGPT) 28 Alkaline Phosphatase 115 Total Protein 7.2 Albumin 4.1 Globulin 3.10 Albumin/Globulin Ratio 1.32 Lipase 60 Urine Color YELLOW Urine Clarity SLIGHTLY CLOUDY A Urine pH 7.0 Urine Specific [place] 1.017 Urine Ketones NEGATIVE Urine Nitrite NEGATIVE Urine Bilirubin NEGATIVE Urine Urobilinogen 1+ H Urine Leukocyte Esterase 1+ H Urine Microscopic RBC > 182 H Urine Microscopic WBC 17 H Urine Calcium Oxalate Crystals FEW A Urine Hemoglobin 3+ H Urine Glucose NEGATIVE Urine Total Protein NEGATIVE HPI/ROS Admit Date/Time Admit Date/Time Hx of Present Illness Chief complaint: Suprapubic pain x2 days, right flank pain This is a 58-year-old male with a past medical history of kidney stones who presented to the emergency department complaining of 2 days of suprapubic pain. Patient has a history of kidney stones and has been following up with her urologist as an outpatient she has had procedures done in the past to remove the kidney stones along with stents. Her recent stones were thought to be small and would pass on their own. Patient reports that on Wednesday she started experiencing suprapubic pain along with some pain in her back. She reports the pain is constant. She also reported that she has had urinary frequency as well as dysuria. She denies any chest pain or nausea vomiting or fevers. Allergies: Latex, Levaquin Medications: None ROS Const: As per HPI Eyes : No pain discharge or redness or change in visual acuity ENT: No pain, sore throat, congestion, congestion, dysphagia or discharge Respiratory: No shortness of breath, cough, sputum, wheezing, or pleuritic pain Cardiovascular: No chest pain, palpitation, PND, or edema GI : no change in appetite, abdominal pain, nausea, vomiting, diarrhea, constipation, or change in the color his stool Genitourinary: As per HPI Musculoskeletal: No joint pain, back pain, neck pain, restricted range of motion in neck or joints Skin: No rash, bruising or hives Neuro: No headache, dizziness, syncope, seizure, focal weakness Endocrine: No polyuria, polydipsia, temperature intolerance Psych: No hallucination, depression, anxiety or suicidal ideation PMH/Family/Social Past Medical History Recurrent nephrolithiasis Medications Current Medications Ondansetron HCl (Zofran Inj) 4 mg BRIDGE ORDER PRN IV NAUSEA/VOMITING; Start 10/24/18 at 02:00; Stop 10/25/18 at 01:59 Acetaminophen (Tylenol Tab) 650 mg ER BRIDGE PRN PO .MILD PAIN 1-3 OR TEMP; Start 10/24/18 at 02:00; Stop 10/25/18 at 01:59 Coded Allergies: latex (Unverified Allergy, Unknown, 09/03/18) levofloxacin (Unverified Allergy, Unknown, 09/03/18) Past Surgical History Previous kidney stone surgery, x4, hysterectomy, oophorectomy Past Surgical Hx: other Family History Significant Family History: no pertinent family hx Social History Alcohol Use: none Smoking Status: Never smoker Drug Use: none Exam/Review of Systems Vital Signs Vitals Vital Signs Date Temp Pulse Resp B/P (MAP) Pulse Ox O2 O2 Flow FiO2 Time Delivery Rate 10/23/18 98.4 81 20 165/82 99 Room Air 22:05 (109) Exam Exam General: Patient is a pleasant female currently lying in bed in mild distress from pain HEENT: Atraumatic, normocephalic. The pupils are equal, round and reactive. Extraocular motor are intact Neck: Supple with full range of motion. No rigidity or meningismus Chest: Nontender Lungs: Clear to auscultation bilaterally no crackles rales or wheezing Heart: Normal S1-S2, Regular rhythm and rate. No murmur, S3, or S4 Abdomen: Soft , nontender, nondistended , bowel sounds are present. No guarding no rebound tenderness , No masses or organomegaly. Genitourinary: Suprapubic tenderness palpation, right flank tenderness to palpation Extremities: Normal to inspection, no edema no cyanosis Neurologic: Normal mental status, speech normal, cranial nerves II through XII are intact, motor and sensory are intact, no focal weakness Additional Comments PROCEDURE: CT Abdomen and Pelvis without contrast. CLINICAL INDICATION: Pain. TECHNIQUE: CT scan of the abdomen and pelvis was performed on a multidetector slice CT scanner. No intravenous contrast material was utilized. Sagittal and coronal reformatted images were obtained from the axial source images. Images were reviewed on a high-resolution PACS workstation. Exam CTDlvol = 16 mGy and DLP = 941 Gy-cm. One of the following 3 dose reduction techniques were used: Automated exposure control; adjustment of the mA and/or kV according to patient size; or use of iterative reconstruction technique. DICOM images are available. COMPARISON: 06/15/2018. FINDINGS: There is no bowel obstruction or ileus. The appendix is visualized. There is no evidence for appendicitis. There is diffuse left and sigmoid colon diverticulosis without evidence for diverticulitis. There is no free fluid. The liver is overall normal in size. No intrahepatic lesions are identified. The gallbladder is normal in appearance. There is no definite biliary ductal dilation. Pancreas is normal in appearance. The spleen is unremarkable. There are no adrenal masses. The aorta is normal caliber. Atherosclerotic vascular calcifications are present. There is mild right hydronephrosis and diffuse hydroureter to the level of a 3 x 3.1 mm calculus in the distal right ureter at the ureterovesicular junction. Immediately proximal the right ureter there is a 1 mm calculus. There are multiple bilateral nonobstructing renal calcifications. Kidneys are otherwise normal in appearance. Left ureter is normal appearance.. The urinary bladder is normal in appearance. Uterus is unremarkable. The ovaries are not well characterized. Limited evaluation of the lung bases demonstrates bibasilar atelectasis. There are degenerative changes of the lumbar spine. IMPRESSION: 1. Obstructing calculus in the distal right ureter at the ureterovesicular junction with associated mild right hydronephrosis and hydroureter. Additional small calculus within the distal right ureter medially adjacent to the obs tructing calculus. 2. Bilateral nonobstructing renal calculi. 3. Diffuse left and sigmoid colon diverticulosis without diverticulitis. 4. Otherwise no change. RPTAT: HMVK .Lamine Bates MD, MD Date Time Electronically viewed and signed by .Lamine Bates MD, MD on 10/24/2018 00:00 .K/ CC: ARAVIND SAUNDERS [id number] SOLO LA Oct 24, 2018 02:27
[2018-10-24] MEDS ORDERED: TAMSULOSIN (SR) 0.4 MG CAP PO ONE (02:30)
[2018-10-24] MEDS ORDERED: BISACODYL (EC) 5 MG TAB PO PRN (02:30)
[2018-10-24] MEDS ORDERED: NACL 0.9% 3 ML SYG IV SCH (02:30)
[2018-10-24] MEDS ORDERED: DOCUSATE SODIUM 100 MG CAP PO PRN (02:30)
[2018-10-24 02:50] VITALS: BP 139/77; PULSE 75; RESP 19
[2018-10-24] MEDS: SOD CHLORIDE 0.9% 1,000 ML IV SCH ×3 (03:22→22:28)
[2018-10-24] MEDS: ONDANSETRON 4 MG INJ IV PRN ×2 (03:24→08:56)
[2018-10-24] MEDS: KETOROLAC 15 MG INJ IV SCH ×4 (03:24→21:54)
[2018-10-24 03:38] VITALS: Ht 167.6 cm; Wt 79.5 kg
[2018-10-24 08:27] VITALS: BP 101/52; PULSE 61; RESP 19
[2018-10-24] MEDS: HYDROmorphONE 0.5 MG/0.5 ML SYG IV PRN ×2 (11:45→16:35)
[2018-10-24] MEDS: SUMATRIPTAN 6 MG/0.5 ML INJ SC PRN (13:17)
--- NOTE | 2018-10-24 13:19 | CONS ---
Assessment/Plan Assessment/Plan Hospital Course (Demo Recall) 58-year-old female with known history of kidney stones presented to the emergency room with right flank pain. She underwent a CT scan of the abdomen and pelvis and that showed a 3 mm stone at the right ureterovesical junction causing obstruction and hydronephrosis. The patient has had stones in the past and has undergone left extracorporeal shockwave lithotripsy to a left ureterop elvic junction stone. Patient does have right lower quadrant pain and right flank pain. The CT scan showed: 1. Obstructing calculus in the distal right ureter at the ureterovesicular junc tion with associated mild right hydronephrosis and hydroureter. Additional small calculus within the distal right ureter medially adjacent to the obstructing calculus. 2. Bilateral nonobstructing renal calculi. 3. Diffuse left and sigmoid colon diverticulosis without diverticulitis. 4. Otherwise no change The stone size is 3 x 3.1 mm at the ureterovesical junction. The patient should be able to pass the stone. Plan is to give her pain medications, get a KUB, she is already on tamsulosin, strain the urine and encourage p.o. fluids. Consultation Date/Type/Reason Admit Date/Time Date of Consultation: Oct 24, 2018 Type of Consult Urology Reason for Consultation Distal right ureteral stone Requesting Provider: SOLO LA Date/Time of Note DATE: 10/24/18 TIME: 13:09 Hx of Present Illness 58-year-old female with known history of kidney stones presented to the emergency room with right flank pain. She underwent a CT scan of the abdomen and pelvis and that showed a 3 mm stone at the right ureterovesical junction causing obstruction and hydronephrosis. The patient has had stones in the past and has undergone left extracorporeal shockwave lithotripsy to a left ureteropelvic junction stone. Patient does have right lower quadrant pain and right flank pain. The CT scan showed: 1. Obstructing calculus in the distal right ureter at the ureterovesicular junction with associated mild right hydronephrosis and hydroureter. Additional small calculus within the distal right ureter medially adjacent to the obstructing calculus. 2. Bilateral nonobstructing renal calculi. 3. Diffuse left and sigmoid colon diverticulosis without diverticulitis. 4. Otherwise no change Constitutional: other (Migraine headaches) Eyes: no complaints ENT: no complaints Respiratory: no complaints; No shortness of breath Cardiovascular: no complaints Gastrointestinal: pain (Right lower quadrant), nausea; No vomiting Genitourinary: flank pain (Right side) Musculoskeletal: no complaints Skin: no complaints Neurologic: headache Lymphatic: no complaints Psychological: no complaints Immunologic: no complaints Past Medical History Medical History: other (History of kidney stones) Home Meds Active Scripts Benzonatate* (Tessalon Perle*) 100 Mg Capsule, 100 MG PO Q8H PRN for COUGH, #10 CAP Prov:SHIRA OLIVARES MD 09/03/18 Prednisone* (Prednisone*) 20 Mg Tab, 40 MG PO DAILY for 4 Days, TAB Prov:SHIRA OLIVARES MD 09/03/18 Ibuprofen* (Motrin*) 600 Mg Tab, 600 MG PO Q6H PRN for PAIN AND OR ELEVATED TEMP, #30 TAB Prov:SANDRA REYES MD 06/15/18 Reported Medications Topiramate* (Topiramate*) 100 Mg Tablet, 100 MG PO BID, TAB 06/15/18 Montelukast Sodium* (Montelukast Sodium*) 10 Mg Tablet, 10 MG PO QHS, #30 TAB 06/15/18 Albuterol Sulfate* (Albuterol Sulfate* Neb) 0.083%-3 Ml Neb, 2.5 MG NEB Q6H PRN for WHEEZING AND SOB, #30 VIAL 06/15/18 Albuterol Sulfate* (Ventolin HFA*) 18 Gm Hfa.aer.ad, 2 PUFF INHALATION Q6H, #1 INHALER 06/15/18 Hydrocodone/Acetaminophen (Irene 10-325 Tablet) 1 Each Tablet, 1 EACH PO Q6H, TAB 06/15/18 Zolpidem Tartrate* (Zolpidem Tartrate*) 5 Mg Tablet, 5 MG PO QHS PRN for INSOMNIA, #30 TAB 06/15/18 Sumatriptan Succinate* (Sumatriptan Succinate* Inj) 6 Mg/0.5 Ml Cartridge, 6 MG SQ Q12H PRN for MIGRAINE, EA MAX 6 mg/dose, repeat in 1 hour if needed. MAX 12 mg/24 hours NEEDED 06/15/18 Fluticasone Propionate* (Fluticasone Propionate* Nasal) 50 Mcg/Cammal - 16 Gm Cammal.susp, 1 SPRAY NASAL BID, #1 BOTTLE TO EACH NOSTRIL 06/15/18 Medications Current Medications Sodium Chloride 1,000 ml @ 100 mls/hr Q10H IV Last administered on 10/24/18at 03:22; Admin Dose 100 MLS/HR; Start 10/24/18 at 02:28 IV Flush (NS 3 ml) 3 ml PER PROTOCOL IV ; Start 10/24/18 at 02:30 Ondansetron HCl (Zofran Inj) 4 mg Q6H PRN IV NAUSEA/VOMITING Last administered on 10/24/18at 08:56; Admin Dose 4 MG; Start 10/24/18 at 02:30 Acetaminophen (Tylenol Tab) 650 mg Q6H PRN PO .PAIN 1-3 OR TEMP; Start 10/24/18 at 02:30 Hydromorphone HCl (Dilaudid) 0.5 mg Q4H PRN IV .SEVERE PAIN 7-10 Last admini stered on 10/24/18at 11:45; Admin Dose 0.5 MG; Start 10/24/18 at 02:30 Docusate Sodium (Colace) 100 mg Q12H PRN PO .CONSTIPATION; Start 10/24/18 at 02:30 Bisacodyl (Dulcolax) 5 mg DAILY PRN PO .CONSTIPATION; Start 10/24/18 at 02:30 Ketorolac Tromethamine (Toradol) 15 mg Q6H IV Last administered on 10/24/18at 09:13; Admin Dose 15 MG; Start 10/24/18 at 02:30; Stop 10/25/18 at 02:29 Tamsulosin HCl (Flomax) 0.4 mg HS PO ; Start 10/24/18 at 21:00 Sumatriptan Succinate (Imitrex) 6 mg DAILY PRN SC HEADACHE; Start 10/24/18 at 12:30 Allergies: Coded Allergies: latex (Unverified Allergy, Unknown, 09/03/18) levofloxacin (Unverified Allergy, Unknown, 09/03/18) Past Surgical History Past Surgical Hx: other (Left extracorporeal shockwave lithotripsy, 4 C- sections, hysterectomy and bilateral oophorectomy, nose surgery, bilateral car pal tunnel surgery) Social History Alcohol Use: none Smoking Status: Never smoker Drug Use: none Exam/Review of Systems Exam Vitals Vital Signs Date Temp Pulse Resp B/P (MAP) Pulse Ox O2 O2 Flow FiO2 Time Delivery Rate 10/24/18 97.4 61 19 101/52 98 Room Air 08:27 (68) Intake and Output 10/23/18 10/23/18 10/24/18 1515:00 23:00 07:00 IntakeIntake Total 250 ml BalanceBalance 250 ml Constitutional: alert, oriented Psych: no complaints Head: normocephalic Eyes: nl conjunctiva ENMT: nl external ears & nose Neck: supple Respiratory: clear to auscultation; No wheezing Cardiovascular: regular rate and rhythm; No jugular venous distention (JVD) Gastrointestinal: soft, tender (Right lower quadrant) Genitourinary - Female: CVA tenderness (Right flank) Neurological: nl mental status Skin: nl turgor Results Result Diagram: 10/24/18 0439 10/24/18 0439 Results 24hrs Laboratory Tests Test 10/23/18 22:27 10/23/18 22:37 10/24/18 04:39 White Blood Count 5.4 4.4 L Red Blood Count 4.86 4.59 Hemoglobin 14.6 13.8 Hematocrit 43.6 41.6 Mean Corpuscular Volume 89.7 90.6 Mean Corpuscular Hemoglobin 30.0 30.1 Mean Corpuscular 33.5 33.2 Hemoglobin Concent Red Cell Distribution Width 12.3 12.4 Platelet Count 180 177 Mean Platelet Volume 11.7 H 12.2 H Immature Granulocytes % 0.200 0.200 Neutrophils % 51.0 40.3 Lymphocytes % 35.6 42.7 Monocytes % 9.3 10.5 Eosinophils % 3.0 5.2 Basophils % 0.9 1.1 Nucleated Red Blood Cells % 0.0 0.0 Immature Granulocytes # 0.010 0.010 Neutrophils # 2.8 1.8 Lymphocytes # 1.9 1.9 Monocytes # 0.5 0.5 Eosinophils # 0.2 0.2 Basophils # 0.1 0.1 Nucleated Red Blood Cells # 0.0 0.0 Sodium Level 144 144 Potassium Level 3.9 3.9 Chloride Level 111 H 115 H Carbon Dioxide Level 26 23 Anion Gap 7 6 Blood Urea Nitrogen 21 H 19 Creatinine 0.91 0.82 Est Glomerular Filtrat > 60 > 60 Rate mL/min Glucose Level 111 111 Calcium Level 9.5 9.0 Total Bilirubin 0.3 0.3 Direct Bilirubin 0.00 0.00 Indirect Bilirubin 0.3 0.3 Aspartate Amino 23 21 Transf (AST/SGOT) Alanine 28 21 Aminotransferase (ALT/SGPT) Alkaline Phosphatase 115 96 Total Protein 7.2 6.0 #L Albumin 4.1 3.6 Globulin 3.10 2.40 Albumin/Globulin Ratio 1.32 1.50 Lipase 60 Urine Color YELLOW Urine Clarity SLIGHTLY CLOUDY A Urine pH 7.0 Urine Specific [place] 1.017 Urine Ketones NEGATIVE Urine Nitrite NEGATIVE Urine Bilirubin NEGATIVE Urine Urobilinogen 1+ H Urine Leukocyte Esterase 1+ H Urine Microscopic RBC > 182 H Urine Microscopic WBC 17 H Urine Calcium Oxalate Crystals FEW A Urine Hemoglobin 3+ H Urine Glucose NEGATIVE Urine Total Protein NEGATIVE Prothrombin Time 12.0 Prothrombin Time Ratio 0.9 INR International 0.88 Normalized Ratio Activated Partial Thromboplast 27.3 Time Hemoglobin A1c 5.4 Magnesium Level 2.3 Triglycerides Level 98 Cholesterol Level 232 H LDL Cholesterol, Calculated 166 HDL Cholesterol 46 Cholesterol/HDL Ratio 5.0 Thyroid Stimulating 2.710 Hormone (TSH) Imaging Imaging CT scan of the abdomen and pelvis: 1. Obstructing calculus in the distal right ureter at the ureterovesicular junction with associated mild right hydronephrosis and hydroureter. Additional small calculus within the distal right ureter medially adjacent to the obstructing calculus. 2. Bilateral nonobstructing renal calculi. 3. Diffuse left and sigmoid colon diverticulosis without diverticulitis. 4. Otherwise no change Medications Medication Current Medications Sodium Chloride 1,000 ml @ 100 mls/hr Q10H IV Last administered on 10/24/18at 03:22; Admin Dose 100 MLS/HR; Start 10/24/18 at 02:28 IV Flush (NS 3 ml) 3 ml PER PROTOCOL IV ; Start 10/24/18 at 02:30 Ondansetron HCl (Zofran Inj) 4 mg Q6H PRN IV NAUSEA/VOMITING Last administered on 10/24/18at 08:56; Admin Dose 4 MG; Start 10/24/18 at 02:30 Acetaminophen (Tylenol Tab) 650 mg Q6H PRN PO .PAIN 1-3 OR TEMP; Start 10/24/18 at 02:30 Hydromorphone HCl (Dilaudid) 0.5 mg Q4H PRN IV .SEVERE PAIN 7-10 Last administered on 10/24/18at 11:45; Admin Dose 0.5 MG; Start 10/24/18 at 02:30 Docusate Sodium (Colace) 100 mg Q12H PRN PO .CONSTIPATION; Start 10/24/18 at 02:30 Bisacodyl (Dulcolax) 5 mg DAILY PRN PO .CONSTIPATION; Start 10/24/18 at 02:30 Ketorolac Tromethamine (Toradol) 15 mg Q6H IV Last administered on 10/24/18at 09:13; Admin Dose 15 MG; Start 10/24/18 at 02:30; Stop 10/25/18 at 02:29 Tamsulosin HCl (Flomax) 0.4 mg HS PO ; Start 10/24/18 at 21:00 Sumatriptan Succinate (Imitrex) 6 mg DAILY PRN SC HEADACHE; Start 10/24/18 at 12:30 LENKA HUANG MD Oct 24, 2018 13:19
[2018-10-24 14:54] VITALS: BP 117/60; PULSE 62; RESP 18
--- NOTE | 2018-10-24 15:58 | PN ---
Date/Time of Note Date/Time of Note DATE: 10/24/18 TIME: 15:56 Assessment/Plan VTE Prophylaxis Risk score (from Ns)>0 risk: 1 SCD applied (from [facility] [place]): Yes Pharmacological prophylaxis: NA/contraindicated Pharm contraindication: low risk/ambulating Lines/Catheters IV Catheter Type (from [facility]): Peripheral IV Urinary Cath still in place: No Assessment/Plan Hospital Course 1. Right pyelonephritis with hydrate ureteronephrosis: Secondary to obstructing calculus Continue IV antibiotics and fluids Follow-up cultures 2. Nephrolithiasis Patient with obstructing calculus in the right distal ureter at the UVJ junction with mild right hydronephrosis and hydroureter Urology consultation obtained Continue Flomax Pain control Patient with a history of lithotripsy and stent placement with Dr. Wallace Prophylaxis: SCDs Result Diagram: 10/24/18 0439 10/24/18 0439 Results 24hrs Laboratory Tests Test 10/23/18 22:27 10/23/18 22:37 10/24/18 04:39 White Blood Count 5.4 4.4 L Red Blood Count 4.86 4.59 Hemoglobin 14.6 13.8 Hematocrit 43.6 41.6 Mean Corpuscular Volume 89.7 90.6 Mean Corpuscular Hemoglobin 30.0 30.1 Mean Corpuscular 33.5 33.2 Hemoglobin Concent Red Cell Distribution Width 12.3 12.4 Platelet Count 180 177 Mean Platelet Volume 11.7 H 12.2 H Immature Granulocytes % 0.200 0.200 Neutrophils % 51.0 40.3 Lymphocytes % 35.6 42.7 Monocytes % 9.3 10.5 Eosinophils % 3.0 5.2 Basophils % 0.9 1.1 Nucleated Red Blood Cells % 0.0 0.0 Immature Granulocytes # 0.010 0.010 Neutrophils # 2.8 1.8 Lymphocytes # 1.9 1.9 Monocytes # 0.5 0.5 Eosinophils # 0.2 0.2 Basophils # 0.1 0.1 Nucleated Red Blood Cells # 0.0 0.0 Sodium Level 144 144 Potassium Level 3.9 3.9 Chloride Level 111 H 115 H Carbon Dioxide Level 26 23 Anion Gap 7 6 Blood Urea Nitrogen 21 H 19 Creatinine 0.91 0.82 Est Glomerular Filtrat > 60 > 60 Rate mL/min Glucose Level 111 111 Calcium Level 9.5 9.0 Total Bilirubin 0.3 0.3 Direct Bilirubin 0.00 0.00 Indirect Bilirubin 0.3 0.3 Aspartate Amino 23 21 Transf (AST/SGOT) Alanine 28 21 Aminotransferase (ALT/SGPT) Alkaline Phosphatase 115 96 Total Protein 7.2 6.0 #L Albumin 4.1 3.6 Globulin 3.10 2.40 Albumin/Globulin Ratio 1.32 1.50 Lipase 60 Urine Color YELLOW Urine Clarity SLIGHTLY CLOUDY A Urine pH 7.0 Urine Specific [place] 1.017 Urine Ketones NEGATIVE Urine Nitrite NEGATIVE Urine Bilirubin NEGATIVE Urine Urobilinogen 1+ H Urine Leukocyte Esterase 1+ H Urine Microscopic RBC > 182 H Urine Microscopic WBC 17 H Urine Calcium Oxalate Crystals FEW A Urine Hemoglobin 3+ H Urine Glucose NEGATIVE Urine Total Protein NEGATIVE Prothrombin Time 12.0 Prothrombin Time Ratio 0.9 INR International 0.88 Normalized Ratio Activated Partial Thromboplast 27.3 Time Hemoglobin A1c 5.4 Magnesium Level 2.3 Triglycerides Level 98 Cholesterol Level 232 H LDL Cholesterol, Calculated 166 HDL Cholesterol 46 Cholesterol/HDL Ratio 5.0 Thyroid Stimulating 2.710 Hormone (TSH) Subjective 24 Hr Interval Summary Neurologic: headache Exam/Review of Systems Exam Vitals Vital Signs Date Temp Pulse Resp B/P (MAP) Pulse Ox O2 O2 Flow FiO2 Time Delivery Rate 10/24/18 97.7 62 18 117/60 98 Room Air 14:54 (79) Intake and Output 10/23/18 10/23/18 10/24/18 1515:00 23:00 07:00 IntakeIntake Total 250 ml BalanceBalance 250 ml Constitutional: alert, oriented Respiratory: clear to auscultation Cardiovascular: regular rate and rhythm Gastrointestinal: soft; No distended Musculoskeletal: nl extremities to inspection Results Results 24hrs Laboratory Tests Test 10/23/18 22:27 10/23/18 22:37 10/24/18 04:39 White Blood Count 5.4 4.4 L Red Blood Count 4.86 4.59 Hemoglobin 14.6 13.8 Hematocrit 43.6 41.6 Mean Corpuscular Volume 89.7 90.6 Mean Corpuscular Hemoglobin 30.0 30.1 Mean Corpuscular 33.5 33.2 Hemoglobin Concent Red Cell Distribution Width 12.3 12.4 Platelet Count 180 177 Mean Platelet Volume 11.7 H 12.2 H Immature Granulocytes % 0.200 0.200 Neutrophils % 51.0 40.3 Lymphocytes % 35.6 42.7 Monocytes % 9.3 10.5 Eosinophils % 3.0 5.2 Basophils % 0.9 1.1 Nucleated Red Blood Cells % 0.0 0.0 Immature Granulocytes # 0.010 0.010 Neutrophils # 2.8 1.8 Lymphocytes # 1.9 1.9 Monocytes # 0.5 0.5 Eosinophils # 0.2 0.2 Basophils # 0.1 0.1 Nucleated Red Blood Cells # 0.0 0.0 Sodium Level 144 144 Potassium Level 3.9 3.9 Chloride Level 111 H 115 H Carbon Dioxide Level 26 23 Anion Gap 7 6 Blood Urea Nitrogen 21 H 19 Creatinine 0.91 0.82 Est Glomerular Filtrat > 60 > 60 Rate mL/min Glucose Level 111 111 Calcium Level 9.5 9.0 Total Bilirubin 0.3 0.3 Direct Bilirubin 0.00 0.00 Indirect Bilirubin 0.3 0.3 Aspartate Amino 23 21 Transf (AST/SGOT) Alanine 28 21 Aminotransferase (ALT/SGPT) Alkaline Phosphatase 115 96 Total Protein 7.2 6.0 #L Albumin 4.1 3.6 Globulin 3.10 2.40 Albumin/Globulin Ratio 1.32 1.50 Lipase 60 Urine Color YELLOW Urine Clarity SLIGHTLY CLOUDY A Urine pH 7.0 Urine Specific [place] 1.017 Urine Ketones NEGATIVE Urine Nitrite NEGATIVE Urine Bilirubin NEGATIVE Urine Urobilinogen 1+ H Urine Leukocyte Esterase 1+ H Urine Microscopic RBC > 182 H Urine Microscopic WBC 17 H Urine Calcium Oxalate Crystals FEW A Urine Hemoglobin 3+ H Urine Glucose NEGATIVE Urine Total Protein NEGATIVE Prothrombin Time 12.0 Prothrombin Time Ratio 0.9 INR International 0.88 Normalized Ratio Activated Partial Thromboplast 27.3 Time Hemoglobin A1c 5.4 Magnesium Level 2.3 Triglycerides Level 98 Cholesterol Level 232 H LDL Cholesterol, Calculated 166 HDL Cholesterol 46 Cholesterol/HDL Ratio 5.0 Thyroid Stimulating 2.710 Hormone (TSH) Medications Medication Current Medications Sodium Chloride 1,000 ml @ 100 mls/hr Q10H IV Last administered on 10/24/18at 13:17; Admin Dose 100 MLS/HR; Start 10/24/18 at 02:28 IV Flush (NS 3 ml) 3 ml PER PROTOCOL IV ; Start 10/24/18 at 02:30 Ondansetron HCl (Zofran Inj) 4 mg Q6H PRN IV NAUSEA/VOMITING Last administered on 10/24/18at 08:56; Admin Dose 4 MG; Start 10/24/18 at 02:30 Acetaminophen (Tylenol Tab) 650 mg Q6H PRN PO .PAIN 1-3 OR TEMP; Start 10/24/18 at 02:30 Hydromorphone HCl (Dilaudid) 0.5 mg Q4H PRN IV .SEVERE PAIN 7-10 Last a dministered on 10/24/18at 11:45; Admin Dose 0.5 MG; Start 10/24/18 at 02:30 Docusate Sodium (Colace) 100 mg Q12H PRN PO .CONSTIPATION; Start 10/24/18 at 02:30 Bisacodyl (Dulcolax) 5 mg DAILY PRN PO .CONSTIPATION; Start 10/24/18 at 02:30 Ketorolac Tromethamine (Toradol) 15 mg Q6H IV Last administered on 10/24/18at 15:44; Admin Dose 15 MG; Start 10/24/18 at 02:30; Stop 10/25/18 at 02:29 Tamsulosin HCl (Flomax) 0.4 mg HS PO ; Start 10/24/18 at 21:00 Sumatriptan Succinate (Imitrex) 6 mg DAILY PRN SC HEADACHE Last administered on 10/24/18at 13:17; Admin Dose 6 MG; Start 10/24/18 at 12:30 MIMA BRANHAM Oct 24, 2018 15:58
[2018-10-24 20:15] VITALS: BP 100/56; PULSE 70; RESP 18
[2018-10-24] MEDS: TAMSULOSIN (SR) 0.4 MG CAP PO SCH (21:53)
[2018-10-25] MEDS: SOD CHLORIDE 0.9% 1,000 ML IV SCH ×2 (00:45→12:19)
[2018-10-25] MEDS: HYDROmorphONE 0.5 MG/0.5 ML SYG IV PRN (00:45)
[2018-10-25 02:11] VITALS: BP 141/82; PULSE 68; RESP 17
[2018-10-25] MEDS: HYDROmorphONE 1 MG/ML SYG IV PRN ×3 (02:43→23:25)
[2018-10-25] MEDS ORDERED: HYDROmorphONE 1 MG/ML SYG IV PRN (04:00)
[2018-10-25 07:29] VITALS: BP 132/77; PULSE 72; RESP 18
[2018-10-25] MEDS: ONDANSETRON 4 MG INJ IV PRN (10:55)
[2018-10-25] MEDS: DIPHENHYDRAMINE 50 MG INJ IV PRN (12:49)
[2018-10-25] MEDS ORDERED: HYDROmorphONE 1 MG/ML SYG IV STA (13:33)
--- NOTE | 2018-10-25 13:42 | CONS ---
Consult Date/Type/Reason Admit Date/Time Oct 24, 2018 at 01:32 Initial Consult Date 10/24/18 Type of Consultation: Urology Reason for Consultation Distal right ureteral stone Requesting Provider: SOLO LA Date/Time of Note DATE: 10/25/18 TIME: 13:40 Subjective Patient is having severe pain at the present time in the right suprapubic area and lower back. Objective Vitals Vital Signs Date Temp Pulse Resp B/P (MAP) Pulse Ox O2 O2 Flow FiO2 Time Delivery Rate 10/25/18 97.8 72 18 132/77 97 Room Air 07:29 (95) Intake and Output 10/24/18 10/24/18 10/25/18 1515:00 23:00 07:00 IntakeIntake Total 600 ml 1320 ml 1350 ml OutputOutput Total 700 ml BalanceBalance 600 ml 1320 ml 650 ml Exam Right flank and right lower quadrant pain. KUB still shows a stone at the right ureterovesical junction. Results/Medications Result Diagram: 10/25/18 0457 10/25/18 0457 Results 24 hrs Laboratory Tests Test 10/25/18 04:57 White Blood Count 6.2 # Red Blood Count 4.76 Hemoglobin 14.3 Hematocrit 44.3 Mean Corpuscular Volume 93.1 Mean Corpuscular Hemoglobin 30.0 Mean Corpuscular Hemoglobin Concent 32.3 Red Cell Distribution Width 12.3 Platelet Count 169 Mean Platelet Volume 12.3 H Immature Granulocytes % 0.200 Neutrophils % 61.1 Lymphocytes % 26.5 Monocytes % 8.5 Eosinophils % 2.9 Basophils % 0.8 Nucleated Red Blood Cells % 0.0 Immature Granulocytes # 0.010 Neutrophils # 3.8 Lymphocytes # 1.6 Monocytes # 0.5 Eosinophils # 0.2 Basophils # 0.1 Nucleated Red Blood Cells # 0.0 Sodium Level 144 Potassium Level 4.2 Chloride Level 116 H Carbon Dioxide Level 21 Anion Gap 7 Blood Urea Nitrogen 20 Creatinine 1.09 H Est Glomerular Filtrat Rate mL/min 52 L Glucose Level 109 Calcium Level 9.0 Total Bilirubin 0.4 Direct Bilirubin 0.00 Indirect Bilirubin 0.4 Aspartate Amino Transf (AST/SGOT) 25 Alanine Aminotransferase (ALT/SGPT) 28 Alkaline Phosphatase 79 Total Protein 6.1 Albumin 3.6 Globulin 2.50 Albumin/Globulin Ratio 1.44 Home Meds Active Scripts Benzonatate* (Tessalon Perle*) 100 Mg Capsule, 100 MG PO Q8H PRN for COUGH, #10 CAP Prov:SHIRA OLIVARES MD 09/03/18 Prednisone* (Prednisone*) 20 Mg Tab, 40 MG PO DAILY for 4 Days, TAB Prov:SHIRA OLIVARES MD 09/03/18 Ibuprofen* (Motrin*) 600 Mg Tab, 600 MG PO Q6H PRN for PAIN AND OR ELEVATED TEMP, #30 TAB Prov:SANDRA REYES MD 06/15/18 Reported Medications Topiramate* (Topiramate*) 100 Mg Tablet, 100 MG PO BID, TAB 06/15/18 Montelukast Sodium* (Montelukast Sodium*) 10 Mg Tablet, 10 MG PO QHS, #30 TAB 06/15/18 Albuterol Sulfate* (Albuterol Sulfate* Neb) 0.083%-3 Ml Neb, 2.5 MG NEB Q6H PRN for WHEEZING AND SOB, #30 VIAL 06/15/18 Albuterol Sulfate* (Ventolin HFA*) 18 Gm Hfa.aer.ad, 2 PUFF INHALATION Q6H, #1 INHALER 06/15/18 Hydrocodone/Acetaminophen ([place] 10-325 Tablet) 1 Each Tablet, 1 EACH PO Q6H, TAB 06/15/18 Zolpidem Tartrate* (Zolpidem Tartrate*) 5 Mg Tablet, 5 MG PO QHS PRN for INSOMNIA, #30 TAB 06/15/18 Sumatriptan Succinate* (Sumatriptan Succinate* Inj) 6 Mg/0.5 Ml Cartridge, 6 MG SQ Q12H PRN for MIGRAINE, EA MAX 6 mg/dose, repeat in 1 hour if needed. MAX 12 mg/24 hours NEEDED 06/15/18 Fluticasone Propionate* (Fluticasone Propionate* Nasal) 50 Mcg/[place] - 16 Gm [place].susp, 1 SPRAY NASAL BID, #1 BOTTLE TO EACH NOSTRIL 06/15/18 Medications Current Medications Sodium Chloride 1,000 ml @ 100 mls/hr Q10H IV Last administered on 10/25/18at 12:19; Admin Dose 100 MLS/HR; Start 10/24/18 at 02:28 IV Flush (NS 3 ml) 3 ml PER PROTOCOL IV ; Start 10/24/18 at 02:30 Ondansetron HCl (Zofran Inj) 4 mg Q6H PRN IV NAUSEA/VOMITING Last administered on 10/25/18at 10:55; Admin Dose 4 MG; Start 10/24/18 at 02:30 Acetaminophen (Tylenol Tab) 650 mg Q6H PRN PO .PAIN 1-3 OR TEMP; Start 10/24/18 at 02:30 Docusate Sodium (Colace) 100 mg Q12H PRN PO .CONSTIPATION; Start 10/24/18 at 02:30 Bisacodyl (Dulcolax) 5 mg DAILY PRN PO .CONSTIPATION; Start 10/24/18 at 02:30 Tamsulosin HCl (Flomax) 0.4 mg HS PO Last administered on 10/24/18at 21:53; Admin Dose 0.4 MG; Start 10/24/18 at 21:00 Sumatriptan Succinate (Imitrex) 6 mg DAILY PRN SC HEADACHE Last administered on 10/24/18at 13:17; Admin Dose 6 MG; Start 10/24/18 at 12:30 Hydromorphone HCl (Dilaudid) 1 mg Q4H PRN IV SEVERE PAIN LEVEL 7-10 Last administered on 10/25/18at 10:56; Admin Dose 1 MG; Start 10/25/18 at 02:00 Diphenhydramine HCl (Benadryl) 25 mg Q8 PRN IV ITCHING Last administered on 10/25/18at 12:49; Admin Dose 25 MG; Start 10/25/18 at 12:20 Assessment/Plan Hospital Course (Demo Recall) 58-year-old female with known history of kidney stones presented to the emergency room with right flank pain. She underwent a CT scan of the abdomen and pelvis and that showed a 3 mm stone at the right ureterovesical junction causing obstruction and hydronephrosis. The patient has had stones in the past and has undergone left extracorporeal shockwave lithotripsy to a left ureteropelvic junction stone. Patient does have right lower quadrant pain and right flank pain. The CT scan showed: 1. Obstructing calculus in the distal right ureter at the ureterovesicular junction with associated mild right hydronephrosis and hydroureter. Additional small calculus within the distal right ureter medially adjacent to the obstr ucting calculus. 2. Bilateral nonobstructing renal calculi. 3. Diffuse left and sigmoid colon diverticulosis without diverticulitis. 4. Otherwise no change The stone size is 3 x 3.1 mm at the ureterovesical junction. The patient should be able to pass the stone. KUB today still show the stone in the same location. The patient continues to have pain. She is afebrile and her white count is no rmal. We will give her more chance to pass the stone. Repeat the KUB in a.m. If the pain persists then we will do cystoscopy and ureteroscopy with laser lithotripsy and remove the stone and inserted JJ stent. LENKA HUANG MD Oct 25, 2018 13:42
[2018-10-25 15:58] VITALS: BP 148/70; PULSE 76; RESP 20
--- NOTE | 2018-10-25 17:33 | PN ---
Date/Time of Note Date/Time of Note DATE: 10/25/18 TIME: 17:31 Assessment/Plan VTE Prophylaxis Risk score (from Ns)>0 risk: 3 SCD applied (from Ns): Yes Pharmacological prophylaxis: NA/contraindicated Pharm contraindication: low risk/ambulating Lines/Catheters IV Catheter Type (from [facility]): Peripheral IV Urinary Cath still in place: No Assessment/Plan Hospital Course 1. Right pyelonephritis with hydrate ureteronephrosis: Secondary to obstructing calculus Continue IV antibiotics and fluids Follow-up cultures 2. Nephrolithiasis Patient with obstructing calculus in the right distal ureter at the UVJ junction with mild right hydronephrosis and hydroureter Urology consultation appreciated, recommendation is to continue IV fluids for now anticipate passing of the stone Continue Flomax Pain control Patient with a history of lithotripsy and stent placement with Dr. Wallace 3. Headache Continue home Imitrex Prophylaxis: SCDs Result Diagram: 10/25/187 10/25/18 0457 Results 24hrs Laboratory Tests Test 10/25/18 04:57 White Blood Count 6.2 # Red Blood Count 4.76 Hemoglobin 14.3 Hematocrit 44.3 Mean Corpuscular Volume 93.1 Mean Corpuscular Hemoglobin 30.0 Mean Corpuscular Hemoglobin Concent 32.3 Red Cell Distribution Width 12.3 Platelet Count 169 Mean Platelet Volume 12.3 H Immature Granulocytes % 0.200 Neutrophils % 61.1 Lymphocytes % 26.5 Monocytes % 8.5 Eosinophils % 2.9 Basophils % 0.8 Nucleated Red Blood Cells % 0.0 Immature Granulocytes # 0.010 Neutrophils # 3.8 Lymphocytes # 1.6 Monocytes # 0.5 Eosinophils # 0.2 Basophils # 0.1 Nucleated Red Blood Cells # 0.0 Sodium Level 144 Potassium Level 4.2 Chloride Level 116 H Carbon Dioxide Level 21 Anion Gap 7 Blood Urea Nitrogen 20 Creatinine 1.09 H Est Glomerular Filtrat Rate mL/min 52 L Glucose Level 109 Calcium Level 9.0 Total Bilirubin 0.4 Direct Bilirubin 0.00 Indirect Bilirubin 0.4 Aspartate Amino Transf (AST/SGOT) 25 Alanine Aminotransferase (ALT/SGPT) 28 Alkaline Phosphatase 79 Total Protein 6.1 Albumin 3.6 Globulin 2.50 Albumin/Globulin Ratio 1.44 Subjective 24 Hr Interval Summary Constitutional: no complaints Exam/Review of Systems Exam Vitals Vital Signs Date Temp Pulse Resp B/P (MAP) Pulse Ox O2 O2 Flow FiO2 Time Delivery Rate 10/25/18 97.6 76 20 148/70 98 Room Air 15:58 (96) Intake and Output 10/24/18 10/24/18 10/25/18 1515:00 23:00 07:00 IntakeIntake Total 600 ml 1320 ml 1350 ml OutputOutput Total 700 ml BalanceBalance 600 ml 1320 ml 650 ml Constitutional: alert, oriented Respiratory: clear to auscultation Cardiovascular: regular rate and rhythm Gastrointestinal: soft; No distended Musculoskeletal: nl extremities to inspection Results Results 24hrs Laboratory Tests Test 10/25/18 04:57 White Blood Count 6.2 # Red Blood Count 4.76 Hemoglobin 14.3 Hematocrit 44.3 Mean Corpuscular Volume 93.1 Mean Corpuscular Hemoglobin 30.0 Mean Corpuscular Hemoglobin Concent 32.3 Red Cell Distribution Width 12.3 Platelet Count 169 Mean Platelet Volume 12.3 H Immature Granulocytes % 0.200 Neutrophils % 61.1 Lymphocytes % 26.5 Monocytes % 8.5 Eosinophils % 2.9 Basophils % 0.8 Nucleated Red Blood Cells % 0.0 Immature Granulocytes # 0.010 Neutrophils # 3.8 Lymphocytes # 1.6 Monocytes # 0.5 Eosinophils # 0.2 Basophils # 0.1 Nucleated Red Blood Cells # 0.0 Sodium Level 144 Potassium Level 4.2 Chloride Level 116 H Carbon Dioxide Level 21 Anion Gap 7 Blood Urea Nitrogen 20 Creatinine 1.09 H Est Glomerular Filtrat Rate mL/min 52 L Glucose Level 109 Calcium Level 9.0 Total Bilirubin 0.4 Direct Bilirubin 0.00 Indirect Bilirubin 0.4 Aspartate Amino Transf (AST/SGOT) 25 Alanine Aminotransferase (ALT/SGPT) 28 Alkaline Phosphatase 79 Total Protein 6.1 Albumin 3.6 Globulin 2.50 Albumin/Globulin Ratio 1.44 Medications Medication Current Medications Sodium Chloride 1,000 ml @ 100 mls/hr Q10H IV Last administered on 10/25/18at 12:19; Admin Dose 100 MLS/HR; Start 10/24/18 at 02:28 IV Flush (NS 3 ml) 3 ml PER PROTOCOL IV ; Start 10/24/18 at 02:30 Ondansetron HCl (Zofran Inj) 4 mg Q6H PRN IV NAUSEA/VOMITING Last administered on 10/25/18at 10:55; Admin Dose 4 MG; Start 10/24/18 at 02:30 Acetaminophen (Tylenol Tab) 650 mg Q6H PRN PO .PAIN 1-3 OR TEMP; Start 10/24/18 at 02:30 Docusate Sodium (Colace) 100 mg Q12H PRN PO .CONSTIPATION; Start 10/24/18 at 02:30 Bisacodyl (Dulcolax) 5 mg DAILY PRN PO .CONSTIPATION; Start 10/24/18 at 02:30 Tamsulosin HCl (Flomax) 0.4 mg HS PO Last administered on 10/24/18at 21:53; Admin Dose 0.4 MG; Start 10/24/18 at 21:00 Sumatriptan Succinate (Imitrex) 6 mg DAILY PRN SC HEADACHE Last administered on 10/24/18 13:17; Admin Dose 6 MG; Start 10/24/18 at 12:30 Hydromorphone HCl (Dilaudid) 1 mg Q4H PRN IV SEVERE PAIN LEVEL 7-10 Last administered on 10/25/18at 10:56; Admin Dose 1 MG; Start 10/25/18 at 02:00 Diphenhydramine HCl (Benadryl) 25 mg Q8 PRN IV ITCHING Last administered on 10/25/18 12:49; Admin Dose 25 MG; Start 10/25/18 at 12:20 MIMA BRANHAM Oct 25, 2018 17:33
[2018-10-25 20:35] VITALS: BP 125/67; PULSE 72; RESP 18
[2018-10-25] MEDS: TAMSULOSIN (SR) 0.4 MG CAP PO SCH (20:37)
[2018-10-26] VITALS (25 sets, daily range): BP systolic 115–161; BP diastolic 60–83; PULSE 62–102; RESP 10–29
[2018-10-26] MEDS: SOD CHLORIDE 0.9% 1,000 ML IV SCH ×2 (01:50→14:51)
[2018-10-26] MEDS: DIPHENHYDRAMINE 50 MG INJ IV PRN (01:57)
[2018-10-26] MEDS: HYDROmorphONE 1 MG/ML SYG IV PRN (13:40)
--- NOTE | 2018-10-26 15:08 | PN ---
Date/Time of Note Date/Time of Note DATE: 10/26/18 TIME: 15:07 Assessment/Plan VTE Prophylaxis Risk score (from Nsg)>0 risk: 1 Pharmacological prophylaxis: NA/contraindicated Pharm contraindication: low risk/ambulating Lines/Catheters IV Catheter Type (from [facility]): Peripheral IV Urinary Cath still in place: No Assessment/Plan Hospital Course 1. Right pyelonephritis with hydrate ureteronephrosis: Secondary to obstructing calculus Continue IV antibiotics and fluids Follow-up on cultures, currently negative 2. Nephrolithiasis Patient with obstructing calculus in the right distal ureter at the UVJ junction with mild right hydronephrosis and hydroureter Urology consultation appreciated, recommendation is to continue IV fluids but may need stent placement KUB continues to show stone at the UV junction Continue Flomax Pain control Patient with a history of lithotripsy and stent placement with Dr. Wallace 3. Headache Continue home Imitrex Prophylaxis: SCDs Result Diagram: 10/25/18 0457 10/26/18 0439 Results 24hrs Laboratory Tests Test 10/26/18 04:39 Sodium Level 145 H Potassium Level 3.9 Chloride Level 114 H Carbon Dioxide Level 22 Anion Gap 9 Blood Urea Nitrogen 19 Creatinine 0.94 Est Glomerular Filtrat Rate mL/min > 60 Glucose Level 103 Calcium Level 8.5 Subjective 24 Hr Interval Summary Constitutional: no complaints Exam/Review of Systems Exam Vitals Vital Signs Date Temp Pulse Resp B/P (MAP) Pulse Ox O2 O2 Flow FiO2 Time Delivery Rate 10/26/18 98.0 69 18 139/70 97 Room Air 15:04 (93) Intake and Output 10/25/18 10/25/18 10/26/18 1515:00 23:00 07:00 IntakeIntake Total 1000 ml 1340 ml 920 ml OutputOutput Total 700 ml 600 ml BalanceBalance 1000 ml 640 ml 320 ml Constitutional: alert, oriented Respiratory: clear to auscultation Cardiovascular: regular rate and rhythm Gastrointestinal: soft; No distended Musculoskeletal: nl extremities to inspection Results Results 24hrs Laboratory Tests Test 10/26/18 04:39 Sodium Level 145 H Potassium Level 3.9 Chloride Level 114 H Carbon Dioxide Level 22 Anion Gap 9 Blood Urea Nitrogen 19 Creatinine 0.94 Est Glomerular Filtrat Rate mL/min > 60 Glucose Level 103 Calcium Level 8.5 Medications Medication Current Medications Sodium Chloride 1,000 ml @ 100 mls/hr Q10H IV Last administered on 10/26/18 14:51; Admin Dose 100 MLS/HR; Start 10/24/18 at 02:28 IV Flush (NS 3 ml) 3 ml PER PROTOCOL IV ; Start 10/24/18 at 02:30 Ondansetron HCl (Zofran Inj) 4 mg Q6H PRN IV NAUSEA/VOMITING Last administered on 10/25/18at 10:55; Admin Dose 4 MG; Start 10/24/18 at 02:30 Acetaminophen (Tylenol Tab) 650 mg Q6H PRN PO .PAIN 1-3 OR TEMP; Start 10/24/18 at 02:30 Docusate Sodium (Colace) 100 mg Q12H PRN PO .CONSTIPATION; Start 10/24/18 at 02:30 Bisacodyl (Dulcolax) 5 mg DAILY PRN PO .CONSTIPATION; Start 10/24/18 at 02:30 Tamsulosin HCl (Flomax) 0.4 mg HS PO Last administered on 10/25/18at 20:37; Admin Dose 0.4 MG; Start 10/24/18 at 21:00 Sumatriptan Succinate (Imitrex) 6 mg DAILY PRN SC HEADACHE Last administered on 10/24/18 13:17; Admin Dose 6 MG; Start 10/24/18 at 12:30 Hydromorphone HCl (Dilaudid) 1 mg Q4H PRN IV SEVERE PAIN LEVEL 7-10 Last administered on 10/26/18 13:40; Admin Dose 1 MG; Start 10/25/18 at 02:00 Diphenhydramine HCl (Benadryl) 25 mg Q8 PRN IV ITCHING Last administered on 10/26/18 01:57; Admin Dose 25 MG; Start 10/25/18 at 12:20 MIMA BRANHAM Oct 26, 2018 15:08
[2018-10-26] MEDS: SOD CHLORIDE 0.45% 1,000 ML IV SCH (16:51)
[2018-10-26] MEDS ORDERED: IOHEXOL 300MG/ML 30 ML BTL ONE (19:23)
--- NOTE | 2018-10-26 19:43 | HPN ---
Date/Time of Note Date/Time of Note DATE: 10/26/18 TIME: 19:43 Interval H&P Admission Note Pt. seen H&P reviewed: No system changes LENKA HUANG MD Oct 26, 2018 19:43
--- NOTE | 2018-10-26 19:54 | PREAC ---
Date/Time of Note Date/Time of Note DATE: 10/26/18 TIME: 19:52 Anesthesia Eval and Record Evaluation Time Pre-Procedure Interview DATE: 10/26/18 TIME: 19:52 Age 58 Sex female NPO: 8 hrs Preoperative diagnosis right renal stone Planned procedure cystoscopy JJ stent placement, uretrocopy laser lithotripsy Past Medical History Past Medical History: Includes Pulm: Asthma Surgery & Anesthesia Issues No known issue Meds Anticoagulation: No Beta Steve within 24 hr: No Reason Beta Steve not given: Pt. not on B-Steve Active Scripts Benzonatate* (Tessalon Perle*) 100 Mg Capsule, 100 MG PO Q8H PRN for COUGH, #10 CAP Prov:SHIRA OLIVARES MD 09/03/18 Prednisone* (Prednisone*) 20 Mg Tab, 40 MG PO DAILY for 4 Days, TAB Prov:SHIRA OLIVARES MD 09/03/18 Ibuprofen* (Motrin*) 600 Mg Tab, 600 MG PO Q6H PRN for PAIN AND OR ELEVATED TEMP, #30 TAB Prov:SANDRA REYES MD 06/15/18 Reported Medications Topiramate* (Topiramate*) 100 Mg Tablet, 100 MG PO BID, TAB 06/15/18 Montelukast Sodium* (Montelukast Sodium*) 10 Mg Tablet, 10 MG PO QHS, #30 TAB 06/15/18 Albuterol Sulfate* (Albuterol Sulfate* Neb) 0.083%-3 Ml Neb, 2.5 MG NEB Q6H PRN for WHEEZING AND SOB, #30 VIAL 06/15/18 Albuterol Sulfate* (Ventolin HFA*) 18 Gm Hfa.aer.ad, 2 PUFF INHALATION Q6H, #1 INHALER 06/15/18 Hydrocodone/Acetaminophen ([place] 10-325 Tablet) 1 Each Tablet, 1 EACH PO Q6H, TAB 06/15/18 Zolpidem Tartrate* (Zolpidem Tartrate*) 5 Mg Tablet, 5 MG PO QHS PRN for INSOMNIA, #30 TAB 06/15/18 Sumatriptan Succinate* (Sumatriptan Succinate* Inj) 6 Mg/0.5 Ml Cartridge, 6 MG SQ Q12H PRN for MIGRAINE, EA MAX 6 mg/dose, repeat in 1 hour if needed. MAX 12 mg/24 hours NEEDED 06/15/18 Fluticasone Propionate* (Fluticasone Propionate* Nasal) 50 Mcg/[place] - 16 Gm [place].susp, 1 SPRAY NASAL BID, #1 BOTTLE TO EACH NOSTRIL 06/15/18 Current Medications IV Flush (NS 3 ml) 3 ml PER PROTOCOL IV ; Start 10/24/18 at 02:30 Ondansetron HCl (Zofran Inj) 4 mg Q6H PRN IV NAUSEA/VOMITING Last administered on 10/25/18at 10:55; Admin Dose 4 MG; Start 10/24/18 at 02:30 Acetaminophen (Tylenol Tab) 650 mg Q6H PRN PO .PAIN 1-3 OR TEMP; Start 10/24/18 at 02:30 Docusate Sodium (Colace) 100 mg Q12H PRN PO .CONSTIPATION; Start 10/24/18 at 02:30 Bisacodyl (Dulcolax) 5 mg DAILY PRN PO .CONSTIPATION; Start 10/24/18 at 02:30 Tamsulosin HCl (Flomax) 0.4 mg HS PO Last administered on 10/25/18at 20:37; Admin Dose 0.4 MG; Start 10/24/18 at 21:00 Sumatriptan Succinate (Imitrex) 6 mg DAILY PRN SC HEADACHE Last administered on 10/24/18at 13:17; Admin Dose 6 MG; Start 10/24/18 at 12:30 Hydromorphone HCl (Dilaudid) 1 mg Q4H PRN IV SEVERE PAIN LEVEL 7-10 Last administered on 10/26/18at 13:40; Admin Dose 1 MG; Start 10/25/18 at 02:00 Diphenhydramine HCl (Benadryl) 25 mg Q8 PRN IV ITCHING Last administered on 10/26/18at 01:57; Admin Dose 25 MG; Start 10/25/18 at 12:20 Sodium Chloride 1,000 ml @ 100 mls/hr Q10H IV Last administered on 10/26/18at 16:51; Admin Dose 100 MLS/HR; Start 10/26/18 at 15:30 Meds reviewed: Yes Allergies Coded Allergies: latex (Unverified Allergy, Unknown, 09/03/18) levofloxacin (Unverified Allergy, Unknown, 09/03/18) Allergies Reviewed: Yes Labs/Studies Labs Reviewed: Reviewed by anesthesiologist Result Diagram: 10/25/18 0457 10/26/18 0439 Laboratory Tests 10/26/18 04:39 test: N/A Studies: ECG (sr), CXR (nl) Pre-procedure Exam Last vitals Vital Signs Date Temp Pulse Resp B/P (MAP) Pulse Ox O2 O2 Flow FiO2 Time Delivery Rate 10/26/18 98.0 69 18 139/70 97 Room Air 15:04 (93) Airway: Adequate thyromental dist Mallampati: Mallampati I Teeth: Normal Lung: Normal Heart: Normal ASA Physical Status ASA physical status: 2 Emergency: None Planned Anesthetic General/MAC: LMA Planned Pain Management Parenteral pain med Pre-operative Attestations Prior to commencing anesthesia and surgery, the patient was re-evaluated, there was verification of: *The patient's identity *The results of appropriate recent lab work and preoperative vital signs *The above evaluation not changing prior to induction *Anesthetic plan, risk benefits, alternative and complications discussed with patient/family; questions answered; patient/family understands, accepts and wishes to proceed. HEIKE BELTRAN MD Oct 26, 2018 19:54
[2018-10-26] MEDS ORDERED: PROPOFOL 100 ML ONE (19:55)
[2018-10-26] MEDS ORDERED: CEFAZOLIN 1 GM INJ ONE (19:55)
[2018-10-26] MEDS ORDERED: FENTAnyl 50 MCG/ML VIAL ONE (19:56)
[2018-10-26] MEDS ORDERED: MIDAZOLAM 1 MG/ML 2 ML INJ ONE (19:56)
[2018-10-26] MEDS ORDERED: ONDANSETRON 4 MG INJ ONE (19:57)
[2018-10-26] MEDS ORDERED: METOCLOPRAMIDE 10 MG INJ ONE (19:57)
[2018-10-26] MEDS ORDERED: LIDOCAINE 2% 20 ML UROJET SYRINGE ONE (20:19)
[2018-10-26] MEDS ORDERED: hydrALAzine 20 MG INJ IV PRN (20:30)
[2018-10-26] MEDS ORDERED: IPRATROPIUM (NEB) 0.5 MG/2.5 ML AMP HHN PRN (20:30)
[2018-10-26] MEDS ORDERED: LABETALOL HCL 20MG INJ IV PRN (20:30)
[2018-10-26] MEDS ORDERED: HYDROmorphONE 1 MG/5 ML IV SYRINGE IV PRN ×3 (20:30)
[2018-10-26] MEDS ORDERED: DIPHENHYDRAMINE 50 MG INJ IV PRN (20:30)
[2018-10-26] MEDS ORDERED: ONDANSETRON 4 MG INJ IV PRN (20:30)
[2018-10-26] MEDS ORDERED: ALBUTEROL 0.083% (NEB) 2.5 MG/3 ML AMP HHN PRN (20:30)
[2018-10-26] MEDS ORDERED: MEPERIDINE 25 MG INJ IV PRN (20:30)
[2018-10-26] MEDS ORDERED: OXYCODONE/ACETAMINOPHEN (5/325) TAB PO PRN ×2 (20:30)
--- NOTE | 2018-10-26 20:58 | OPR ---
Date/Time of Note Date/Time of Note DATE: 10/26/18 TIME: 20:52 Operative Report Procedure Date: Oct 26, 2018 Preoperative Diagnosis Distal right ureteral stone Postoperative Diagnosis Same Operation/Procedure Performed Cystoscopy, right ureteroscopy, laser lithotripsy and insertion of right ureteral JJ stent 6 [place] by 22 cm long Surgeon see signature line [employer] Flory Raman Anesthesia Type: general Anesthesiologist: HEIKE BELTRAN MD Estimated Blood Loss: none Transfusion none Specimen Stone fragments Grafts/Implants Right ureteral JJ stent 6 [place] by 22 cm long Complications none Pt Condition Post Procedure: stable Disposition: PACU Indications Distal right ureteral stone with persistent pain Procedure Description The patient was brought to the operating room. Time out was done the patient was identified by her name, birthdate, the procedure and the side of the procedure. The patient was given 2 g of Ancef IV at the start of the procedure. The patient was then positioned in the lithotomy position and the genital area was prepped and draped in the usual sterile manner. #21 [place] cystoscope sheath was introduced into the bladder, urine was collected for culture and sensitivity. The right ureteral orifice was then cannulated with a 5 [place] open ended ureteral catheter and a 0.035 zip wire was passed through it into the right ureter. It was hitting the stone and not passing it but after some ma nipulation I was able to advance it above the stone all the way up to the kidney. Then I reintroduced the open ended ureteral catheter into the ureter and passed a 0.[address] up to the kidney. The sensor wire was used as a safety wire and the zip wire was used to advance the rigid ureteroscope on it. The stone was visualized, then the wire was removed and the 265 m laser fiber was used and the holmium laser was used to break the stone into multiple pieces. these pieces were then basketed one at a time and dropped into the bladder the ureter was cleared completely from the stone fragments. Then I did the cystoscopy and drained all the stone fragments out of the bladder. Then I reintroduced the cystoscope on the safety wire and inserted a 6 [place] by 22 cm long JJ stent in the right ureter under fluoroscopy, had its proximal end curling into the kidney and the distal end curling into the bladder. The distal end is attached to a string that was brought out through the urethra and taped with 2 pieces of Tegaderm to her right groin. The patient tolerated the procedure well and was transferred to recovery room in stable and satisfactory condition LENKA HUANG MD Oct 26, 2018 20:58
[2018-10-27] MEDS: SOD CHLORIDE 0.45% 1,000 ML IV SCH (00:27)
[2018-10-27] MEDS: HYDROmorphONE 1 MG/ML SYG IV PRN (00:30)
[2018-10-27 02:20] VITALS: BP 122/74; PULSE 63; RESP 18
[2018-10-27] MEDS: SUMATRIPTAN 6 MG/0.5 ML INJ SC PRN (02:34)
--- NOTE | 2018-10-27 06:52 | PAC ---
Date/Time of Note Date/Time of Note DATE: 10/27/18 TIME: 06:52 Post-Anesthesia Notes Post-Anesthesia Note Last documented vital signs Vital Signs Date Temp Pulse Resp B/P (MAP) Pulse Ox O2 O2 Flow FiO2 Time Delivery Rate 10/27/18 98.6 63 18 122/74 93 02:20 (90) 10/26/18 Room Air 23:45 10/26/18 8.0 20:56 Activity: WNL Respiratory function: WNL Cardiovascular function: WNL Mental status: Baseline Pain reasonably controlled: Yes Hydration appropriate: Yes Nausea/Vomiting absent: No HEIKE BELTRAN MD Oct 27, 2018 06:52
[2018-10-27 07:31] VITALS: BP 141/80; PULSE 74; RESP 20
--- NOTE | 2018-10-27 10:12 | PDOCDIS ---
Discharge Instructions CONDITION [id number] Patient Condition: [id number] Good HOME CARE INSTRUCTIONS: [id number] Diet Instructions: [id number] Regular ACTIVITY: [id number] Activity Restrictions: [id number] Rest between Activity Avoid heavy lifting Avoid Heavy Housework FOLLOW UP/APPOINTMENTS Follow-up Plan FOLLOW UP WITH YOUR PCP IN 1-2 WEEKS, FOLLOW UP WITH MIMA MARTI Oct 27, 2018 10:11
--- NOTE | 2018-10-27 14:59 | DS ---
Date/Time of Note Date/Time of Note DATE: 10/27/18 TIME: 14:56 Discharge Summary Admission/Discharge Info Admit Date/Time Oct 24, 2018 at 01:32 Discharge Date/Time Oct 27, 2018 at 11:06 Discharge Diagnosis 1. Right pyelonephritis hydronephrosis secondary to obstructing calculus Status post IV antibiotics and fluids Cultures are negative 2. Nephrolithiasis Patient with obstructing calculus in the right distal ureter at the UVJ junction with mild right hydronephrosis and hydroureter Urology consultation appreciated, patient is status post cystoscopy, right ureteroscopy, laser lithotripsy and insertion of right ureteral JJ stent As post Flomax Pain control Patient with a history of lithotripsy and stent placement with Dr. Huang 3. Headache Continue home Imitrex Patient Condition: Good Hospital Course Patient is a 58-year-old female with a history of headaches and nephrolithiasis status post lithotripsy and stent placement in the past. Patient presents with nephrolithiasis and infected ureteral stone, patient received IV fluids and antibiotics with no resolution of stone at the UVJ junction. Patient was seen by urology and underwent Cystoscopy, right ureteroscopy, laser lithotripsy and insertion of right ureteral JJ stent. Patient was cleared for DC per urology, on the day of discharge patient vitals, labs and physical exam are stable. Home Meds Active Scripts Benzonatate* (Tessalon Perle*) 100 Mg Capsule, 100 MG PO Q8H PRN for COUGH, #10 CAP Prov:SHIRA OLIVARES MD 09/03/18 Prednisone* (Prednisone*) 20 Mg Tab, 40 MG PO DAILY for 4 Days, TAB Prov:SHIRA OLIVARES MD 09/03/18 Ibuprofen* (Motrin*) 600 Mg Tab, 600 MG PO Q6H PRN for PAIN AND OR ELEVATED TEMP, #30 TAB Prov:SANDRA REYES MD 06/15/18 Reported Medications Topiramate* (Topiramate*) 100 Mg Tablet, 100 MG PO BID, TAB 06/15/18 Montelukast Sodium* (Montelukast Sodium*) 10 Mg Tablet, 10 MG PO QHS, #30 TAB 06/15/18 Albuterol Sulfate* (Albuterol Sulfate* Neb) 0.083%-3 Ml Neb, 2.5 MG NEB Q6H PRN for WHEEZING AND SOB, #30 VIAL 06/15/18 Albuterol Sulfate* (Ventolin HFA*) 18 Gm Hfa.aer.ad, 2 PUFF INHALATION Q6H, #1 INHALER 06/15/18 Hydrocodone/Acetaminophen ([place] 10-325 Tablet) 1 Each Tablet, 1 EACH PO Q6H, TAB 06/15/18 Zolpidem Tartrate* (Zolpidem Tartrate*) 5 Mg Tablet, 5 MG PO QHS PRN for INSOMNIA, #30 TAB 06/15/18 Sumatriptan Succinate* (Sumatriptan Succinate* Inj) 6 Mg/0.5 Ml Cartridge, 6 MG SQ Q12H PRN for MIGRAINE, EA MAX 6 mg/dose, repeat in 1 hour if needed. MAX 12 mg/24 hours NEEDED 06/15/18 Fluticasone Propionate* (Fluticasone Propionate* Nasal) 50 Mcg/[place] - 16 Gm [place].susp, 1 SPRAY NASAL BID, #1 BOTTLE TO EACH NOSTRIL 06/15/18 Follow-up Plan FOLLOW UP WITH YOUR PCP IN 1-2 WEEKS, FOLLOW UP WITH DR HUANG Primary Care Provider [facility] Time spent on discharge: > 30 minutes MIMA BRANHAM Oct 27, 2018 14:59
--- NOTE | 2018-10-28 07:44 | RADRPT ---
Vent Rate: 74 bpm RR Interval: 812 msec [place] Interval: 159 msec QRS Duration: 83 msec QT Interval: 375 msec QTC Interval: 416 msec P-R-T [place]: 52 - 19 - 10 degrees Sinus rhythm...normal P axis, V-rate 50- 99 Low voltage, precordial leads...precordial leads <1.0mV Electronically Signed By: Arthur Roy
== END 2018-10-27 11:06 | disposition home or self-care (01) | DRG 660 ==
LOC: E/R 21:21 → MS1 10-24 01:32
PROVIDERS: ADMIT Family Medicine; ATTEND Internal Medicine
PROC: 0TC68ZZ Extirpation of Matter from Right Ureter, Via Natural or Artificial Opening Endoscopic (ICD-10-PCS; 2018-10-26)
PROC: 0T768DZ Dilation of Right Ureter with Intraluminal Device, Via Natural or Artificial Opening Endoscopic (ICD-10-PCS; principal; 2018-10-26 20:00)
DX: N13.6 Pyonephrosis (principal); N20.2 Calculus of kidney with calculus of ureter; E78.5 Hyperlipidemia, unspecified; J45.909 Unspecified asthma, uncomplicated; R51 Headache
CPT/HCPCS: 36415; 71045; 74018; 74176; 74430; 80048; 80053; 80061; 81001; 82306; 83036; 83690; 83735; 84443; 85025; 85610; 85730; 87086; 88300; 93005; 96374; 96375; C2617; J0690; J0696; J1170; J1200; J1885; J2175; J2250; J2270; J2405; J2765; J3010; J3030; J7030; Q9967